=== PATIENT | female | born 1990 | race Caucasian/White ===

== ENCOUNTER 2021-05-04 14:46 | Emergency (ER) | payer OTHER, SELFPAY ==
--- NOTE | ~2021-05-04 | XR_ITS ---
EXAMINATION: RIGHT FOOT AND RIGHT ANKLE. CLINICAL INFORMATION: Pain and redness. COMPARISON: None TECHNIQUE: Right foot and right ankle. FINDINGS: Right ankle: There is mild lateral malleolar soft tissue swelling. The ankle mortise and subtalar joints are normal. There is moderate size calcaneal heel enthesophyte. No acute fracture or dislocation seen. Right foot: There is mild hallux valgus deformity first MTP joint. No visible acute fracture, dislocation seen. No subluxation or bony erosive changes. The soft tissues are normal. XR/XR ankle RT 2V IMPRESSION: Moderate size calcaneal heel enthesophyte. No visible acute fracture or dislocation seen. Hallux valgus deformity first MTP joint. No visible acute fracture or dislocation seen.
--- NOTE | ~2021-05-04 | XR_ITS ---
EXAMINATION: RIGHT FOOT AND RIGHT ANKLE. CLINICAL INFORMATION: Pain and redness. COMPARISON: None TECHNIQUE: Right foot and right ankle. FINDINGS: Right ankle: There is mild lateral malleolar soft tissue swelling. The ankle mortise and subtalar joints are normal. There is moderate size calcaneal heel enthesophyte. No acute fracture or dislocation seen. Right foot: There is mild hallux valgus deformity first MTP joint. No visible acute fracture, dislocation seen. No subluxation or bony erosive changes. The soft tissues are normal. XR/XR foot RT min 3V IMPRESSION: Moderate size calcaneal heel enthesophyte. No visible acute fracture or dislocation seen. Hallux valgus deformity first MTP joint. No visible acute fracture or dislocation seen.
[2021-05-04 14:58] VITALS: BP 136/90; PULSE 82; RESP 6; TEMP 36.6; O2SAT 98; BMI 33.3
--- NOTE | 2021-05-04 15:25 | ED_ITS ---
HPI - General Adult General Chief complaint: Extremity Injury, Lower Stated complaint: rt foot pain Time Seen by Provider: 05/04/21 15:20 Source: patient Mode of arrival: ambulatory Limitations: no limitations History of Present Illness HPI narrative: 30-year-old female here today for complaining of right ankle pain. Patient denies any injury. She reports that she woke up this morning and her foot was hurting. She reports swelling to right outer ankle. Patient reports that when she is walking she has pain that is radiating to her toes. Patient denies any insect bite. Onset (ago): hour(s) Location: right and lower extremity Radiation: distal Severity: mild Quality: burning and aching Related Data Previous Rx's Medication Instructions Recorded ibuprofen 600 mg tablet 600 mg PO Q8H PRN #20 tab 05/04/21 oxycodone 5 mg tablet 5 mg PO Q4-6H PRN #5 tab 05/04/21 Allergies Allergy/AdvReac Type Severity Reaction Status Date / Time No Known Allergies Allergy Verified 05/04/21 14:56 Review of Systems Constitutional: Constitutional: Denies weight gain and Denies weight loss Eyes: Eyes: Reports no additional eye complaints ENT: Reports system reviewed and no additional complaints, except as document ed Cardiovascular: Cardiovascular: Reports no additional cardiovascular complaints Respiratory: Respiratory: Reports no additional respiratory complaints Gastrointestinal: Gastrointestinal: Reports no additional gastrointestinal complaints, Reports belching and Reports melena Genitourinary: Genitourinary: Reports no additional female genitourinary complaints Musculoskeletal: Musculoskeletal: Reports no additional musculoskeletal complaints Neurologic: Reports system reviewed and no additional complaints, except as documented Psychiatric: Psychiatric: Reports no additional psychiatric complaints Endocrine: Endocrine: Reports no additional endocrine complaints [facility], [facility] Past Medical History Medical History (Updated 05/04/21 @ 16:44 by Reta Reyes [employer]OCUTION TEACHER-) Asthma Surgical History (Updated 05/04/21 @ 15:01 by Edna Schneider) S/P cholecystectomy Social History Social History Advance Directives: No Advance Directives Information Provided: No Patient : No Physical Exam Vital Signs: Vital Signs: Last Vital Signs Temp 97.8 F 05/04/21 14:58 Pulse 82 05/04/21 14:58 Resp 6 L 05/04/21 14:58 BP 136/90 H 05/04/21 14:58 Pulse Ox 98 05/04/21 14:58 Body Mass Index 33.3 Const: General: healthy appearing, no acute distress and well developed Nutritional Appearance: well nourished Orientation/consciousness: patient oriented x3 Neck: Neck: Yes normal visual inspection, Yes full ROM and Yes trachea midline Thyroid: Thyroid normal Resp: Auscultation: clear to auscultation bilaterally Cardio: Rate: regular rate Rhythm: regular rhythm GI: Inspection: Yes normal to inspection and No distended Palpation (GI): Soft to palpation and No hepatosplenomegaly present Auscultation: normal bowel sounds Skin: General skin exam: elasticity normal, turgor normal and dry skin Neuro: General: patient oriented x3 Extrem: General: Yes normal to inspection and Yes full ROM Right lower extremity: edema (Right outer ankle) Left lower extremity: normal to inspection Course Course Course Narrative: 30-year-old female complaining of right ankle pain. Patient denies any injury or any insect bite. Upon examination good range of motion, however she does have warm to touch swelling of her right outer ankle. No visible insect bite. However I suspect that most likely this is due to insect bite area red and inflamed. I will order x-ray and medicate her with ibuprofen. Reevaluation(s) Reevaluation #1: X-ray reviewed and no acute processes. Will send patient home with script for ibuprofen and oxycodone. She will follow-up with her PCP in 2-3 days. Patient was instructed to monitor the area and put warm compresses in order for that swelling to go down. Medical Decision Making Imaging Data Right ankle and foot x-ray: Radiologist's impression: FINDINGS: Right ankle: There is mild lateral malleolar soft tissue swelling. The ankle mortise and subtalar joints are normal. There is moderate size calcaneal heel enthesophyte. No acute fracture or dislocation seen. Right foot: There is mild hallux valgus deformity first MTP joint. No visible acute fracture, dislocation seen. No subluxation or bony erosive changes. The soft tissues are normal.? Discharge Plan Discharge Clinical Impression: Ankle pain Qualifiers: Chronicity: acute Laterality: right Qualified Code(s): M25.571 - Pain in right ankle and joints of right foot Patient Disposition: Home, Self-Care Instructions: Swollen Joint (ED) Additional Instructions: You were seen here today for swelling of your right ankle and pain. There x-ray was negative for any acute processes. Please follow-up with your primary care doctor in 2-3 days. Please apply heat to affected area. Keep your leg elevated when sitting. You may return to emergency department if you will experience any concerning symptoms or if you current symptoms will get worse. Prescriptions: New ibuprofen 600 mg tablet 600 mg PO Q8H PRN (Reason: pain) Qty: 20 RF: 0 oxycodone 5 mg tablet 5 mg PO Q4-6H PRN (Reason: pain) Qty: 5 RF: 0 Interventions: ED Discharge Assessment Last Done: 05/04/21 17:02 Discharge Date/Time: 05/04/21 17:02
[2021-05-04] MEDS: Ibuprofen 600 MG TABLET PO (15:30)
== END 2021-05-04 17:02 | disposition home or self-care (01) ==
PROVIDERS: Emergency Provider Internal Medicine
DX: M25.571 Pain in right ankle and joints of right foot (principal); Z79.899 Other long term (current) drug therapy
CPT/HCPCS: 73600; 73630; 99283; 99284

== ENCOUNTER 2022-05-26 15:08 | Emergency (ER) | payer OTHER, SELFPAY ==
[2022-05-26 15:21] VITALS: BP 140/70; BP 151/85; PULSE 120; PULSE 91; RESP 18; TEMP 37.1; O2SAT 80; O2SAT 99; BMI 92.4
--- NOTE | 2022-05-26 16:22 | ED.PSYCH ---
HPI - Psych General Chief Complaint: ETOH/Substance Use Stated Complaint: UNRESPONSIVE Time Seen by Provider: 05/26/22 15:15 Source: patient and EMS Mode of arrival: EMS Limitations: no limitations History of Present Illness HPI Narrative: Patient with no history of substance abuse use marijuana was walking on the sidewalk went to the Store had some marijuana and does not remember after that what happened patient was found on on the sidewalk cyanosed by bystanders [facility] had to give 8 mg of Narcan without much response EMS gave 2 mg IM and 2 mg intranasally and patient woke up patient required BVM for short time fever on arrival patient was saturating 99% on room air alert and awake Related Data Previous Rx's Medication Instructions Recorded ibuprofen 600 mg tablet 600 mg PO Q8H PRN pain #20 tabs 05/04/21 oxycodone 5 mg tablet 5 mg PO Q4-6H PRN pain #5 tabs 05/04/21 Allergies Allergy/AdvReac Type Severity Reaction Status Date / Time No Known Allergies Allergy Verified 05/04/21 14:56 Review of Systems Review of Systems: Yes all other systems are reviewed and are negative PMFSH Past Medical History Medical History Asthma Surgical History S/P cholecystectomy Social History Social History Advance Directives: No Advance Directives Information Provided: Yes Physical Exam Vital Signs: Vital Signs: Last Vital Signs Temp 98.7 F 05/26/22 15:21 Pulse 91 05/26/22 15:21 Resp 18 05/26/22 15:21 BP 151/85 H 05/26/22 15:21 Pulse Ox 99 05/26/22 15:21 O2 Del Method 05/26/22 15:21 BMI result Body Mass Index 92.4 Appearance: Alert. Oriented X3. No acute distress. Eyes: PERRLA, No Nystagmus ENT: Pharynx normal. Oral Mucosa moist Neck: Normal inspection. Neck supple. CVS: Normal heart rate and rhythm. Pulses normal. Respiratory: No respiratory distress. Equal air entry bilateral, no wheezing/rales/rhonchi Abdomen: Soft and nontender. Bowel sounds are present, no mass palpable, no CVA tenderness Skin: Skin warm and dry. Normal skin color. Normal skin turgor. Extremities: No lower extremity edema. No calf tenderness Neuro: Oriented X 3. No motor deficit. No sensory deficit.No cerebellar signs , cranial nerves II-XII intact MDM - Psych MDM Narrative Medical decision making narrative: Patient denies any need for detox states she does not use it and has not used any drugs in the past except marijuana very tearful on arrival will discharge patient home All the patient's urine positive for fentanyl and marijuana likely laced by fentanyl Lab Data Attestation: I reviewed the patient's lab results. Labs: Lab Results 05/26/22 Range/Units 16:19 Urine Opiates Screen Not Detected (Not Detect) Urine Fentanyl Screen POSITIVE H (Not Detect) Ur Barbiturates Screen Not Detected (Not Detect) Ur Phencyclidine Scrn Not Detected (Not Detect) Ur Amphetamines Screen Not Detected (Not Detect) U Benzodiazepines Scrn Not Detected (Not Detect) Urine Cocaine Screen Not Detected (Not Detect) U Marijuana (THC) Screen POSITIVE H (Not Detect) Discharge Plan Discharge Clinical Impression: Accidental opiate poisoning Patient Disposition: Home, Self-Care Instructions: Opioid Use Disorder (ED) Additional Instructions: About using opiate Follow-up with the detox Prescriptions: No Action ibuprofen 600 mg tablet 600 mg PO Q8H PRN (Reason: pain) Qty: 20 0RF oxycodone 5 mg tablet 5 mg PO Q4-6H PRN (Reason: pain) Qty: 5 0RF Rx Instructions: Patient may request fewer tablets than prescribed Interventions: ED Discharge Assessment Last Done: 05/26/22 17:19 Discharge Date/Time: 05/26/22 17:20
--- NOTE | 2022-05-26 16:27 | HO.SUDE ---
SUDE Patient is a 31 year old Italian speaking female who presented to [facility] ED after an accidental overdose. This tech writer met with patient to offer support and to conduct SUDE assessment. Patient reports that she does not use cocaine, heroin or any street pills. Patient reports she had a couple nips, a beer and smoked marijuana and that is the last thing she remembers. Patient reports she bought marijuana from someone she does not know and that she doesn't typically do this. Patient reports she smokes marijuana everyday to help with her appetite. Patient reports drinking one bottle of wine over the course of a week. Patient reports numerous life stressors including eviction, moving and family moving away and general feelings of isolation. Patient has two children who are in school at this time. Patient reports she likes to stay busy and was feeling isolated and anxious due to not working today. Patient continues to report no drug use aside form marijuana and alcohol. Patient states if I was an addict I would tell you. Patient reports she has never overdosed before. Patient reports she is currently awaiting counseling through [facility] and that she has found this helpful in the past. Discussed coping skills with patient. Patient reports she prays and reads when she is unable to get in touch with family for support. Encouraged patient to purchase cannabis through a dispensary if she is going to continue using. Patient acknowledged. Discussed utilizing healthy coping skills as opposed to alcohol when stressors occur. Discussed case with ED physician.
[2022-05-26 16:43] LABS: Amphetamine Screen Urine Not Detected (Not Detect); Barbiturates, Urine Not Detected (Not Detect); Benzodiazepines Screen Urine Not Detected (Not Detect); Cannabinoid Screen Urine POSITIVE (Not Detect); Cocaine Screen Urine Not Detected (Not Detect); Fentanyl, urine POSITIVE (Not Detect); Opiate Screen Urine Not Detected (Not Detect); Phencyclidine Screen Urine Not Detected (Not Detect)
--- NOTE | 2022-05-26 17:14 | MHC.RECOVSUP ---
? Reason for consult Recovery Support o Current location: ED05 o Identified substance use concern: Heroin - Overdose - Support ? Intervention: o Community resources provided o Harm reduction discussion ? Plan: o Patient awaiting crisis evaluation o Patient to follow up with [facility] after discharge ? Additional information: Met with Patient and we talked about Recovery and Harm reduction.. Patient stated that she has gone to [facility].. and that she is going to start going again
== END 2022-05-26 17:20 | disposition home or self-care (01) ==
PROVIDERS: Emergency Provider Internal Medicine
DX: T40.411A Poisoning by fentanyl or fentanyl analogs, accidental (unintentional), initial encounter (principal); T40.711A Poisoning by cannabis, accidental (unintentional), initial encounter; R40.4 Transient alteration of awareness; F19.10 Other psychoactive substance abuse, uncomplicated; Y92.410 Unspecified street and highway as the place of occurrence of the external cause; J45.909 Unspecified asthma, uncomplicated
CPT/HCPCS: 80307; 99282

== ENCOUNTER 2022-09-21 13:43 | Emergency (ER) | payer OTHER, SELFPAY ==
--- NOTE | ~2022-09-21 | CT_ITS ---
EXAMINATION: CT SOFT TISSUE NECK WITH CONTRAST CLINICAL INFORMATION: Dental abscess. COMPARISON: None TECHNIQUE: Following the intravenous administration of 60 mL of Omnipaque 350 intravenous contrast, helical imaging was performed in the axial plane with generation of coronal and sagittal reformatted images. This CT examination was performed using dose optimization techniques as appropriate, variously including the following: *Automated exposure control *Adjustment of mA and/or kV according to patient size (this includes techniques or standardized protocols for targeted exams where dose is matched to indication/reason for exam; i.e. extremities or head) *Use of iterative reconstruction technique DLP: 773 mGy-cm FINDINGS: There is soft tissue edema and small volume of fluid adjacent to the angle of the jaw at the left side of the face with mild edema extending into the left cheek subcutaneous tissue. There is no drainable abscess. No enhancing lesion. There is lucency around the apex of the posterior left mandible molar. There is dental caries of this molar as well with erosion of the dental crown. There is no periosteal abscess. Small retention cyst in the posterior left sphenoid sinus. No significant lymphadenopathy. There are a few small subcentimeter lymph nodes in the neck bilateral. Partially imaged intracranial structures are unremarkable. Orbits unremarkable. Lung apices normally aerated. CT/CT soft tissue neck w IV con IMPRESSION: 1. Soft tissue edema and small volume of fluid adjacent to the angle of the jaw at the left side of the face. There is no drainable abscess. 2. There is dental caries and lucency around the apex of the posterior left mandible molar. This is the etiology for the exam of the left side of the face. No periosteal abscess.
[2022-09-21 14:00] VITALS: BP 155/94; PULSE 92; RESP 18; TEMP 36.9; O2SAT 98; BMI 39.9
--- NOTE | 2022-09-21 14:00 | ED_ITS ---
HPI - Dental/Oral General Chief complaint: Dental/Oral <Carin Craig NP - Last Filed: 09/21/22 14:02> Stated complaint: dental pain facial swelling <Carin Craig NP - Last Filed: 09/21/22 14:02> Time Seen by Provider: 09/21/22 15:15 <Carin Craig NP - Last Filed: 09/21/22 14:02> Source: patient <Chantell Ahumada NP - Last Filed: 09/21/22 19:10> Mode of arrival: ambulatory <Chantell Ahumada NP - Last Filed: 09/21/22 19:10> Limitations: no limitations <Chantell Ahumada NP - Last Filed: 09/21/22 19:10> History of Present Illness HPI Narrative: 32-year-old female no significant past medical history presents to emergency department today with complaints of left-sided facial/jaw swelling present upon waking. She states she has several dental caries, specifically concerning is a left back molar that is cracked and broken. She states she begin amoxicillin antibiotic therapy yesterday, 7 day course, with anticipation for removal of the tooth in 1 week by her dentist. She reports associated discomfort, trismus and difficulty swallowing due to pain. She denies any difficulty managing her saliva, swallowing liquids, swallowing foods. She denies any fever, chest pain, shortness of breath, nausea, vomiting, headache, vision changes, ear pain. <Chantell Ahumada NP - Last Filed: 09/21/22 19:10> MD Complaint: tooth pain <Chantell Ahumada NP - Last Filed: 09/21/22 19:10> Location: Tooth # (Most likely 17) <Chantell Ahumada NP - Last Filed: 09/21/22 19:10> Onset (ago): hour(s) <Chantell Ahumada NP - Last Filed: 09/21/22 19:10> Duration: constant <Chantell Ahumada NP - Last Filed: 09/21/22 19:10> Severity: severe <Chantell Ahumada NP - Last Filed: 09/21/22 19:10> Severity scale (1-10): 8 <Chantell Ahumada NP - Last Filed: 09/21/22 19:10> Relieving factors: nothing <Chantell Ahumada NP - Last Filed: 09/21/22 19:10> Exacerbating factors: chewing, cold, swallowing and other (Opening around) <Chantell Ahumada NP - Last Filed: 09/21/22 19:10> Context: history of dental caries <Chantell Ahumada NP - Last Filed: 09/21/22 19:10> Associated symptoms: gum swelling <Chantell Ahumada NP - Last Filed: 09/21/22 19:10> Treatment prior to arrival: none <Chantell Ahumada NP - Last Filed: 09/21/22 19:10> Related Data Home medications: Previous Rx's Medication Instructions Recorded ibuprofen 600 mg tablet 600 mg PO Q8H PRN pain #20 tabs 05/04/21 oxycodone 5 mg tablet 5 mg PO Q4-6H PRN pain #5 tabs 05/04/21 oxycodone 5 mg capsule 5 mg PO Q6H PRN pain #8 caps 09/21/22 prednisone 20 mg tablet 60 mg PO DAILY #5 tabs 09/21/22 <Carin Craig NP - Last Filed: 09/21/22 14:02> Allergies/adverse reactions: Allergies Allergy/AdvReac Type Severity Reaction Status Date / Time latex Allergy Rash Verified 09/21/22 14:02 <Carin Craig NP - Last Filed: 09/21/22 14:02> Review of Systems Review of Systems: In addition to documented HPI above, the additional ROS was obtained: CONSTITUTIONAL: Denies fever, chills, weakness, fatigue, headache, night sweats, or weight loss EYES: Denies vision changes, eye pain, swelling, redness, foreign body, discharge ENT: Hearing normal. Denies sore throat, congestion, ear pain, no hoarseness CV: Denies chest pain or epigastric pain. No edema, palpitations, or dyspnea on exertion RESP: Denies shortness of breath. Denies cough, wheezing, dyspnea. Denies smoke exposure GI: Denies abdominal pain. Denies nausea, vomiting, constipation or diarrhea. No melena or hematochezia. : Denies irregular bleeding, and dysuria, urinary frequency, urinary incontinence/retention, urgency. Denies flank pain, hematuria MSK: Denies recent trauma, change in gait, myalgias, joint swelling or pain SKIN: Denies no lesions, rashes, or sores NEURO: Denies new numbness, tingling, dizziness, paresthesias or weakness. No loss of consciousness. Denies headache ENDOCRINE: Denies unexpected weight loss. Denies polyuria, polydipsia. No temperature intolerance HEME/ONC: Denies bleeding disorders, easy bruising, or lymphadenopathy PSYCH: Denies anxiety/panic, depression, SI/HI, or social issues. <Chantell Ahumada NP - Last Filed: 09/21/22 19:10> Yes all other systems are reviewed and are negative <Chantell Ahumada NP - Last Filed: 09/21/22 19:10> PMF Past Medical History Attestation statement: The following information was validated with the patient. <Chantell gonzalez NP - Last Filed: 09/21/22 19:10> Source: old records reviewed <Chantell Ahumada NP - Last Filed: 09/21/22 19:10> Medical History: Medical History Asthma <Carin Craig NP - Last Filed: 09/21/22 14:02> Surgical History: Surgical History S/P cholecystectomy <Carin Craig NP - Last Filed: 09/21/22 14:02> Social History Social History: Social History Advance Directives: No Advance Directives Information Provided: Yes <Carin Craig NP - Last Filed: 09/21/22 14:02> Physical Exam Vital Signs: Vital Signs: Last Vital Signs Temp 98.5 F 09/21/22 14:00 Pulse 92 09/21/22 14:00 Resp 18 09/21/22 14:00 BP 155/94 H 09/21/22 14:00 Pulse Ox 98 09/21/22 14:00 O2 Del Method 09/21/22 14:00 BMI result Body Mass Index 39.9 <Carin Craig NP - Last Filed: 09/21/22 14:02> Vital Signs: Last Vital Signs Temp 98.5 F 09/21/22 14:00 Pulse 92 09/21/22 14:00 Resp 18 09/21/22 14:00 BP 155/94 H 09/21/22 14:00 Pulse Ox 98 09/21/22 14:00 O2 Del Method 09/21/22 14:00 BMI result Body Mass Index 39.9 <Chantell Ahumada NP - Last Filed: 09/21/22 19:10> Nursing notes and vital signs reviewed. GENERAL APPEARANCE: A&0 x 4, generally well appearing, no acute distress HENMT: Normal to inspection, atraumatic, face symmetrical. Normal external ears, nose, and oropharynx clear. EYE: PERRLA, EOM intact, structures appear normal NECK: No stiffness or restricted ROM. Left-sided edema at parotid gland extending into neck CHEST: Normal to inspection HEART: Normal rate and regular rhythm, normal S1/S2, no M/R/G LUNGS: LS CTA, moving air well. Able to speak in complete sentences. No crackles, wheezes, or rhonchi auscultated ABDOMEN: Soft, nontender, nondistended. Normal bowel sounds noted BACK: No CVAT, no obvious deformity EXTREMITIES: Moving all extremities without difficulty. No cyanosis, clubbing, or edema. Normal capillary refill. NEUROLOGICAL: Alert and oriented, moving all 4 extremities with equal strength. CN not formally tested but appearing grossly intact. Observed to ambulate with normal gait. Cognition normal SKIN: Warm and dry without any lesions, rash, or visible sores PSYCH: Cooperative, normal affect, normal thought process <Chantell Ahumada NP - Last Filed: 09/21/22 19:10> Course Course Course Narrative: This is a rapid medical exam. Defer additional HPI, ROS and PE department provider. 32-year-old female with a history of asthma here with left sided lower dental pain and facial swelling. Patient was given antibiotic but did not start this till this morning. Patient with significant swelling to the left facial area. Likely will need ad vanced imaging. Will obtain labs, UA, ur preg. VSS <Carin Craig NP - Last Filed: 09/21/22 14:02> This is a rapid medical exam. Defer additional HPI, ROS and PE department provider. 32-year-old female with a history of asthma here with left sided lower dental pain and facial swelling. Patient was given antibiotic but did not start this till this morning. Patient with significant swelling to the left facial area. Likely will need advanced imaging. Will obtain labs, UA, ur preg. VSS 1550: Patient with significant swelling, pain, with fluctuance noticed at left cheek. CT soft tissue neck ordered. 1600: Topical lidocaine ointment and oxycodone provided to patient for comfort. 1620: Case discussed with Dr. Frausto. to bedside to assess possible dental abscess. Left posterior oropharynx anesthetized with 1% lidocaine for pain. Needle aspiration completed obtaining 1-2 mL purulent fluid. Lactic acid and blood cultures drawn. 1 L normal saline bolus given. Zosyn to be given MD recommendation for antibiotic coverage. Morphine given for c/o pain and zofran for c/o nausea with good effect his symptom reduction. 1700: lactate within normal limits, 0.6 1800: CT soft tissue neck showing soft tissue edema, small volume of fluid adjacent to the angle of the jaw on the left side of face, with no drainable abscess. Dental caries lucency noted at posterior mandible with no periosteal abscess. CT scan discussed with Dr. Frausto with plan to discharge home and continue a prescribed amoxicillin, [id number] Tylenol and/or Motrin, and oxycodone for pain control. Recommendation patient follow-up with her oral surgeon and primary care provider <Chantell Ahumada NP - Last Filed: 09/21/22 19:10> Medications Administered Discontinued Medications Generic Name Dose Route Start Last Admin Trade Name Freq PRN Reason Stop Dose Admin Piperacillin Sod/Tazobactam 50 mls @ 100 mls/hr 09/21/22 16:36 09/21/22 17:30 Sod 2.25 gm/ Sodium Chloride IV 09/21/22 17:05 Infused ONCE ONE Infusion Sodium Chloride 1,000 mls @ 999 mls/hr 09/21/22 16:45 09/21/22 18:39 Ns IVCONT 09/21/22 17:45 Infused .Q1H1M DEVON Infusion Iohexol 100 ml 09/21/22 17:46 09/21/22 17:46 Iohexol 350 Mg/Ml 100 Ml Infus..Btl IV 09/21/22 17:47 60 ml ONCE ONE Administration Morphine Sulfate 4 mg 09/21/22 16:37 09/21/22 16:52 Morphine Sulfate 4 Mg/Ml Cartridge IVPUSH 09/21/22 16:38 4 mg ONCE ONE Administration Protocol Ondansetron HCl 4 mg 09/21/22 16:37 09/21/22 16:52 Ondansetron Hcl 4 Mg/2 Ml Vial IVPUSH 09/21/22 16:38 4 mg ONCE ONE Administration Oxycodone HCl 5 mg 09/21/22 15:47 09/21/22 15:55 Oxycodone Hcl Immed Release 5 Mg Tablet PO 09/21/22 15:48 5 mg ONCE ONE Administration <Carin Craig NP - Last Filed: 09/21/22 14:02> Medications Administered Discontinued Medications Generic Name Dose Route Start Last Admin Trade Name Freq PRN Reason Stop Dose Admin Piperacillin Sod/Tazobactam 50 mls @ 100 mls/hr 09/21/22 16:36 09/21/22 17:30 Sod 2.25 gm/ Sodium Chloride IV 09/21/22 17:05 Infused ONCE ONE Infusion Sodium Chloride 1,000 mls @ 999 mls/hr 09/21/22 16:45 09/21/22 18:39 Ns IVCONT 09/21/22 17:45 Infused .Q1H1M DEVON Infusion Iohexol 100 ml 09/21/22 17:46 09/21/22 17:46 Iohexol 350 Mg/Ml 100 Ml Infus..Btl IV 09/21/22 17:47 60 ml ONCE ONE Administration Morphine Sulfate 4 mg 09/21/22 16:37 09/21/22 16:52 Morphine Sulfate 4 Mg/Ml Cartridge IVPUSH 09/21/22 16:38 4 mg ONCE ONE Administration Protocol Ondansetron HCl 4 mg 09/21/22 16:37 09/21/22 16:52 Ondansetron Hcl 4 Mg/2 Ml Vial IVPUSH 09/21/22 16:38 4 mg ONCE ONE Administration Oxycodone HCl 5 mg 09/21/22 15:47 09/21/22 15:55 Oxycodone Hcl Immed Release 5 Mg Tablet PO 09/21/22 15:48 5 mg ONCE ONE Administration <Chantell Auhmada NP - Last Filed: 09/21/22 19:10> Medical Decision Making Medical Decision Making MDM Narrative: 32-year-old female no significant past medical history presents to emergency department today with complaints of left-sided facial/jaw swelling present upon waking. She states she has several dental caries, specifically concerning is a left back molar that is cracked and broken. She states she begin amoxicillin antibiotic therapy yesterday, 7 day course, with anticipation for removal of the tooth in 1 week by her dentist. She reports associated discomfort, trismus and difficulty swallowing due to pain. Left oropharynx near tooth 17 anesthetized with 1-2 cc prior line drainage obtained. One does IV Zosyn given. Blood cultures drawn. Lactate level within normal limits. Blood work with elevated LFTs otherwise unremarkable. CT soft tissue neck showing soft tissue edema, small volume of fluid adjacent to the angle of the jaw on the left side of face, with no drainable abscess. Dental caries lucency noted at posterior mandible with no periosteal abscess. CT scan discussed with Dr. Frausto with plan to discharge home and continue a prescribed amoxicillin, [id number] Tylenol and/or Motrin, and oxycodone for pain control. Patient is safe for discharge at this time with plan to manage discomfort with [id number] Tylenol and/or Motrin, and prescribe narcotic. Prednisone prescribed for inflammation. Recommendation to continue her previously prescribed antibiotics as prescribed. HPI, PE, diagnostics, and plan discussed with patient and family with no unanswered questions at this time. Patient educated to return to the emergency department with difficulty swallowing, worsening pain, vision changes, ear pain, fever, or any other concerning emergent symptoms.Recommendation patient follow-up with her oral surgeon for further dental treatment management and her primary care provider regarding elevated liver enzymes *Refer to Course for additional information on consultations, diagnostic interpretation, consultations, emergency department stay, conversations with patient and family, shared decision making with patient, and more information on medical decision making* <Chantell Ahumada NP - Last Filed: 09/21/22 19:10> Lab Data [facility] Lab Attestation statement: I reviewed the patient's lab results. <Chantell Ahumada, SHED BOSS - Last Filed: 09/21/22 19:10> Result Diagrams: 09/21/22 15:14 09/21/22 15:14 <Carin Craig, SHED BOSS - Last Filed: 09/21/22 14:02> Labs: Lab Results 09/21/22 09/21/22 09/21/22 Range/Units 15:14 15:14 16:45 WBC 5.3 (4.8-10.8) X10*3/uL RBC 3.99 L (4.20-5.50) X10*6/uL Hgb 13.5 (12.0-16.0) g/dl Hct 38.8 (37.0-47.0) % MCV 97.2 (80.0-98.0) fL MCH 33.8 H (27.0-33.0) pg MCHC 34.8 (31.0-35.0) g/dl RDW 12.7 (11.0-16.0) % Plt Count 129 L (160-400) X10*3/uL MPV 11.5 (9.4-12.3) fL Immature Gran % (Auto) 0.4 (0.0-0.4) % Neut % (Auto) 64.0 (45-73) % Lymph % (Auto) 19.2 L (20-40) % [place] % (Auto) 15.6 H (2-11) % Eos % (Auto) 0.6 (0-4) % Baso % (Auto) 0.2 (0-2) % Lymph # (Auto) 1.0 L (1.2-4.9) X10*3/uL [place] # (Auto) 0.8 (0.1-1.2) X10*3/uL Eos # (Auto) 0.0 (0.0-0.4) X10*3/uL Baso # (Auto) 0.0 (0.0-0.2) X10*3/uL Abs Immat Gran (auto) 0.02 (0.00-0.03) X10*3/uL Absolute Neuts (auto) 3.4 (2.0-8.3) x10*3/uL Absolute Nucleated RBC 0.000 (0.0-0.012) X10*3/uL Nucleated RBC % (auto) 0.0 (0.0-0.2) /100WBC Sodium 136 (135-145) mmol/L Potassium 3.6 (3.3-5.1) mmol/L Chloride 101 (96-108) mmol/L Carbon Dioxide 28 (22-29) mmol/L Anion Gap 11 L (12-20) BUN 11 (9-16) mg/dL Creatinine 0.67 (0.5-1.4) mg/dL Estim Creat Clear Calc 146.5 Estimated GFR > 60 Random Glucose 93 (60-115) mg/dL Lactic Acid 0.6 (0.5-2.0) mmol/L Calcium 8.5 (8.4-10.2) mg/dL Total Bilirubin 1.1 H (0.0-1.0) mg/dL Direct Bilirubin 0.4 (0.0-0.5) mg/dL AST 63 H (5-31) U/L ALT 75 H (0-31) U/L Alkaline Phosphatase 125 H (39-117) U/L Total Protein 5.9 L (6.5-8.0) g/dL Albumin 3.7 (3.5-5.0) g/dL Beta HCG, Quant < 2 mIU/mL <Carin Craig, SHED BOSS - Last Filed: 09/21/22 14:02> Lab Results 09/21/22 09/21/22 09/21/22 Range/Units 15:14 15:14 16:45 WBC 5.3 (4.8-10.8) X10*3/uL RBC 3.99 L (4.20-5.50) X10*6/uL Hgb 13.5 (12.0-16.0) g/dl Hct 38.8 (37.0-47.0) % MCV 97.2 (80.0-98.0) fL MCH 33.8 H (27.0-33.0) pg MCHC 34.8 (31.0-35.0) g/dl RDW 12.7 (11.0-16.0) % Plt Count 129 L (160-400) X10*3/uL MPV 11.5 (9.4-12.3) fL Immature Gran % (Auto) 0.4 (0.0-0.4) % Neut % (Auto) 64.0 (45-73) % Lymph % (Auto) 19.2 L (20-40) % [place] % (Auto) 15.6 H (2-11) % Eos % (Auto) 0.6 (0-4) % Baso % (Auto) 0.2 (0-2) % Lymph # (Auto) 1.0 L (1.2-4.9) X10*3/uL [place] # (Auto) 0.8 (0.1-1.2) X10*3/uL Eos # (Auto) 0.0 (0.0-0.4) X10*3/uL Baso # (Auto) 0.0 (0.0-0.2) X10*3/uL Abs Immat Gran (auto) 0.02 (0.00-0.03) X10*3/uL Absolute Neuts (auto) 3.4 (2.0-8.3) x10*3/uL Absolute Nucleated RBC 0.000 (0.0-0.012) X10*3/uL Nucleated RBC % (auto) 0.0 (0.0-0.2) /100WBC Sodium 136 (135-145) mmol/L Potassium 3.6 (3.3-5.1) mmol/L Chloride 101 (96-108) mmol/L Carbon Dioxide 28 (22-29) mmol/L Anion Gap 11 L (12-20) BUN 11 (9-16) mg/dL Creatinine 0.67 (0.5-1.4) mg/dL Estim Creat Clear Calc 146.5 Estimated GFR > 60 Random Glucose 93 (60-115) mg/dL Lactic Acid 0.6 (0.5-2.0) mmol/L Calcium 8.5 (8.4-10.2) mg/dL Total Bilirubin 1.1 H (0.0-1.0) mg/dL Direct Bilirubin 0.4 (0.0-0.5) mg/dL AST 63 H (5-31) U/L ALT 75 H (0-31) U/L Alkaline Phosphatase 125 H (39-117) U/L Total Protein 5.9 L (6.5-8.0) g/dL Albumin 3.7 (3.5-5.0) g/dL Beta HCG, Quant < 2 mIU/mL <Chantell Ahumada NP - Last Filed: 09/21/22 19:10> Radiology Impression Discussion of test interpretation with radiology: I have reviewed the radiologist's reading. <Chantell Ahumada NP - Last Filed: 09/21/22 19:10> Radiologist Impression: I have independently reviewed the CT scan of soft tissue neck showing soft tissue edema and small fluid volume adjacent to the jaw on the left side of face with no drainable abscess, dental caries, no periosteal abscess EXAMINATION: CT SOFT TISSUE NECK WITH CONTRAST CLINICAL INFORMATION: Dental abscess.? COMPARISON: None? TECHNIQUE: Following the intravenous administration of 60 mL of Omnipaque 350 intravenous contrast, helical imaging was performed in the axial plane with generation of coronal and sagittal reformatted images. This CT examination was performed using dose optimization techniques as appropriate, variously including the following: *Automated exposure control *Adjustment of mA and/or kV according to patient size (this includes techniques or standardized protocols for targeted exams where dose is matched to indication/reason for exam; i.e. extremities or head) *Use of iterative reconstruction technique DLP: 773 mGy-cm FINDINGS: There is soft tissue edema and small volume of fluid adjacent to the angle of the jaw at the left side of the face with mild edema extending into the left cheek subcutaneous tissue. There is no drainable abscess. No enhancing lesion. There is lucency around the apex of the posterior left mandible molar. There is dental caries of this molar as well with erosion of the dental crown. There is no periosteal abscess. Small retention cyst in the posterior left sphenoid sinus. No significant lymphadenopathy. There are a few small subcentimeter lymph nodes in the neck bilateral. Partially imaged intracranial structures are unremarkable. Orbits unremarkable. Lung apices normally aerated. CT/CT soft tissue neck w IV con IMPRESSION: 1.? Soft tissue edema and small volume of fluid adjacent to the angle of the jaw at the left side of the face. There is no drainable abscess. 2.? There is dental caries and lucency around the apex of the posterior left mandible molar. This is the etiology for the exam of the left side of the face. No periosteal abscess. ? Dictated By: Ted Macedo MD Signed By: <Electronically signed by Ted Macedo MD in [place]> 09/21/221807 DD/ 51 TD/TT:? Physical Therapist Center Manager: HAMZAH <Chantell Ahumada NP - Last Filed: 09/21/22 19:10> Discharge Plan Discharge Clinical Impression: Dental abscess <Carin Craig NP - Last Filed: 09/21/22 14:02> Patient Disposition: Home, Self-Care <Carin Craig NP - Last Filed: 09/21/22 14:02> Instructions: Dental Abscess (ED) <Carin Craig NP - Last Filed: 09/21/22 14:02> Additional Instructions: Your CT scan shows soft tissue swelling with a small volume of fluid at the jaw on the left side of your face with no drainable abscess. There are dental caries at the back of the left molars with no abscesses noted in the bone. Your blood work is unremarkable with the exception your liver enzymes were mildly elevated. Please follow-up the primary care provider regarding this. Please continue amoxicillin antibiotic prescription. Prednisone has been prescribed you as an anti-inflammatory to help with swelling. Oxycodone has been provided to you for pain management. Please take as prescribed. Do not take oxycodone with other sedating medications, do not drive while taking narcotics. Please return to the emergency department with difficulty swallowing, increased pain, changes in vision, ear pain, fever, or any other concerning emergent symptoms. Please follow-up with your dentist regarding your dental abscess. <Carin Craig NP - Last Filed: 09/21/22 14:02> Prescriptions: New prednisone 20 mg tablet 60 mg PO DAILY Qty: 5 0RF oxycodone 5 mg capsule 5 mg PO Q6H PRN (Reason: pain) Qty: 8 0RF Rx Instructions: Partial Fill upon patient request. No Action ibuprofen 600 mg tablet 600 mg PO Q8H PRN (Reason: pain) Qty: 20 0RF oxycodone 5 mg tablet 5 mg PO Q4-6H PRN (Reason: pain) Qty: 5 0RF Rx Instructions: Patient may request fewer tablets than prescribed <Carin Craig NP - Last Filed: 09/21/22 14:02> Referrals: [facility] [place] [facility]] [facility]] <Carin Craig NP - Last Filed: 09/21/22 14:02> Print Language: Mohawk <Carin Craig NP - Last Filed: 09/21/22 14:02>
[2022-09-21 15:20] LABS: MANUAL DIFF FLAG NO
[2022-09-21 15:34] LABS: Basophils Percent Auto 0.2 % (0-2); Eosinophils Percent Auto 0.6 % (0-4); Hematocrit 38.8 % (37.0-47.0); Hemoglobin 13.5 g/dl (12.0-16.0); Imm Gran Abs Auto 0.02 X10*3/uL (0.00-0.03); Imm Gran Pct Auto 0.4 % (0.0-0.4); Lymphocytes Percent Auto 19.2 % (20-40); Mean Corpuscular HGB Conc 34.8 g/dl (31.0-35.0); Mean Corpuscular Hemoglobin 33.8 pg (27.0-33.0); Mean Corpuscular Volume 97.2 fL (80.0-98.0); Mean Platelet Volume 11.5 fL (9.4-12.3); Monocytes Absolute Auto 0.8 X10*3/uL (0.1-1.2); Monocytes Percent Auto 15.6 % (2-11); Neutrophils Absolute Auto 3.4 x10*3/uL (2.0-8.3); Platelet Count 129 X10*3/uL (160-400); Red Blood Count 3.99 X10*6/uL (4.20-5.50); Red Cell Distribution Width 12.7 % (11.0-16.0); White Blood Count 5.3 X10*3/uL (4.8-10.8)
[2022-09-21 15:40] LABS: Anion Gap 11 (12-20); Blood Urea Nitrogen 11 mg/dL (9-16); Calcium 8.5 mg/dL (8.4-10.2); Carbon Dioxide 28 mmol/L (22-29); Chloride 101 mmol/L (96-108); Creatinine Clr Calc Pharmacy 146.5; Estimated Glomerular Filt Rate > 60; Glucose Random 93 mg/dL (60-115); Potassium 3.6 mmol/L (3.3-5.1); Sodium 136 mmol/L (135-145)
[2022-09-21] MEDS: oxyCODONE HCl Immed Release 5 MG TABLET PO (15:55)
[2022-09-21 16:38] LABS: Alanine Aminotransferase 75 U/L (0-31); Albumin Level 3.7 g/dL (3.5-5.0); Alkaline Phosphatase 125 U/L (39-117); Aspartate Amino Transferase 63 U/L (5-31); Bilirubin Direct 0.4 mg/dL (0.0-0.5); Bilirubin Total 1.1 mg/dL (0.0-1.0); Total Protein 5.9 g/dL (6.5-8.0)
[2022-09-21] MEDS: Piperacillin Sodium/Tazobactam 2.25 GM in 0.9 % Sodium Chloride 50 ML IV (16:52)
[2022-09-21] MEDS: ondansetron HCL 4 MG/2 ML VIAL IVPUSH (16:52)
[2022-09-21] MEDS: 0.9 % Sodium Chloride 1,000 ML 999 ML IVCONT (16:52)
[2022-09-21] MEDS: Morphine Sulfate 4 MG/ML CARTRIDGE IVPUSH (16:52)
[2022-09-21 17:24] LABS: Lactic Acid 0.6 mmol/L (0.5-2.0)
[2022-09-21] MEDS: iohexoL 350 MG/ML 100 ML INFUS..BTL IV (17:46)
[2022-09-21 18:15] LABS: HCG Quantitative < 2 mIU/mL
== END 2022-09-21 19:18 | disposition home or self-care (01) ==
PROVIDERS: Nurse Practitioner Family; Physician Assistant Medical; Emergency Provider Student in an Organized Health Care Education/Training Program
DX: K04.7 Periapical abscess without sinus (principal); R60.9 Edema, unspecified; R68.84 Jaw pain; K02.9 Dental caries, unspecified; K03.81 Cracked tooth
CPT/HCPCS: 36415; 41800; 70491; 80048; 80076; 83605; 84702; 85025; 87040; 96361; 96365; 96375; 99283; 99284; J2270; J2405; J2543; Q9967

== ENCOUNTER 2023-03-06 17:54 | Emergency (ER) | payer OTHER, SELFPAY ==
--- NOTE | ~2023-03-06 | XR_ITS ---
EXAMINATION: XR TIBIA AND FIBULA, LEFT CLINICAL INFORMATION: Wound distal mackenzie COMPARISON: None available. TECHNIQUE: AP and lateral views of the left tibia and fibula were obtained. FINDINGS: There is a subtle soft tissue defect along the anterior aspect of the distal mackenzie. There is diffuse soft tissue edema seen elsewhere. I do not appreciate any radiopaque foreign body or obvious soft tissue gas. Underlying bony structures are unremarkable with no acute fracture or dislocation noted. XR/XR tibia fibula LT 2V IMPRESSION: Soft tissue defect along the anterior aspect of the distal mackenzie with diffuse soft tissue edema elsewhere. No radiopaque foreign body or acute bony abnormality.
[2023-03-06 18:11] VITALS: BP 114/82; PULSE 90; RESP 18; TEMP 36; O2SAT 97; BMI 37.4
--- NOTE | 2023-03-06 18:11 | ED.GENADULT ---
HPI - General Adult General Chief complaint: Wound/Laceration Stated complaint: L leg inj Time Seen by Provider: 03/06/23 19:46 Source: patient Mode of arrival: ambulatory Limitations: no limitations History of Present Illness HPI narrative: 32 yo female presents to the ER for evaluation of left lower leg wound sustained 1 month ago when she was climbing on rocks. She states she has been changing the dressings once per day and it has been very slowly healing. The last 3-4 days she noticed more redness, swelling and discomfort around the open portion of the wound proximally. She denies any drainage from the wound. No fever or chills. She is not diabetic. She is an active smoker. She has not seen a medical provider for this wound before. MD complaint: left lower leg wound Onset (ago): week(s) Location: left and lower extremity Radiation: non-radiation Severity: moderate Quality: aching Pain Consistency: intermittent Relieving factors: none Exacerbating factors: none Associated symptoms: denies other symptoms Treatments prior to arrival: none Related Data Previous Rx's Medication Instructions Recorded ibuprofen 600 mg tablet 600 mg PO Q8H PRN pain #20 tabs 05/04/21 oxycodone 5 mg tablet 5 mg PO Q4-6H PRN pain #5 tabs 05/04/21 oxycodone 5 mg capsule 5 mg PO Q6H PRN pain #8 caps 09/21/22 prednisone 20 mg tablet 60 mg PO DAILY #5 tabs 09/21/22 amoxicillin 875 mg-potassium 1 tab PO BID #14 tabs 03/06/23 clavulanate 125 mg tablet Allergies Allergy/AdvReac Type Severity Reaction Status Date / Time latex Allergy Rash Verified 03/06/23 18:11 Review of Systems Review of Systems: Yes all other systems are reviewed and are negative [facility] Past Medical History Medical History Asthma Surgical History S/P cholecystectomy Social History Social History Advance Directives: No Advance Directives Information Provided: No Physical Exam ED Vital Signs: Vital Signs - 24 hr 03/06/23 18:11 Temperature 96.8 F Pulse Rate 90 Respiratory Rate 18 Blood Pressure 114/82 Pulse Oximetry 97 Oxygen Delivery Method Room Air BMI result Body Mass Index 37.4 Appearance: Alert. Oriented X3. No acute distress. HEENT: normal inspection CVS: Normal heart rate and rhythm. Pulses normal. Respiratory: No respiratory distress. Skin: Skin warm and dry. Normal skin color. Normal skin turgor. No rashes. Extremities: left lower anterior leg with a 7 inch wound, fully healed distal 4 inches with 3 inches of open wound approximately 0.25cm deep with scabbing. mild surrounding erythema, tenderness. no fluctuance. no calf tenderness Neuro: Oriented X 3. No motor deficit. No sensory deficit. Course Course Course Narrative: This is an RME: Additional HPI, ROS, PE not included below will be deferred to primary provider. Patient is a 32-year-old female with wound to left lower leg. States was climbing rocks 4 weeks ago and slipped. Had been doing dressing changes but feels has been developing new erythema over the past few days. Denies fevers. Can go to [facility]. Plan: X-ray Medications Administered Discontinued Medications Generic Name Dose Route Start Last Admin Trade Name Freq PRN Reason Stop Dose Admin Amoxicillin/Clavulanate Potassium 875 mg 03/06/23 19:59 03/06/23 20:08 Amoxicillin/Potassium Clav 875 Mg Tablet PO 03/06/23 20:00 875 mg ONCE ONE Administration Medical Decision Making Medical Decision Making [facility] Narrative: 32 yo female, active smoker presenting with chronic left lower leg wound from slipping on a rock a month ago. On exam there is healing by secondary intention proximally with mild surrounding cellulitic changes. no evidence of abscess. XR done and did not show any bony changes. no fever or tachycardia, unlikely sepsis. she has delayed wound healing with smoking likely contributing. she would have benefited from wound closure at the time of injury. will start on po abx and have her follow up with the wound clinic for further management and montioring. Differential Diagnosis Differential Diagnoses: The differential diagnosis associated with the presentation includes delayed wound healing, cellulitis, abscess, less likely osteomyelitis Independent Interpretation I performed an independent interpretation of an: Plain X-Ray Interpretation: no bony erosions, agree w/ radiology read Radiology Impression Discussion of test interpretation with radiology: I have reviewed the radiologist's reading. Radiologist Impression: ?XR/XR tibia fibula LT 2V IMPRESSION: Soft tissue defect along the anterior aspect of the distal mackenzie with diffuse soft tissue edema elsewhere. No radiopaque foreign body or acute bony abnormality. External Record Review External record reviewed: Outpatient record and Prior outpatient labs Tests considered The following testing was considered but not selected: considered basic labs but exam w/ mild cellulitis on exam Prescription Management I considered prescription management with: Pain Medication and Antibiotic Chronic Conditions Patient?s care impacted by: Other (active smoker) Critical Care Time Critical Care Time Critical Care Time: No Discharge Plan Discharge Clinical Impression: Open wound, lower leg Patient Disposition: Home, Self-Care Instructions: Acute Wounds (DC) Additional Instructions: Take the prescribed antibiotics as directed, complete the entire course and do not miss any doses Follow up with the wound clinic - call for an appointment Do your best to quit or cut back on smoking, this will help with would healing If you develop new or worsening symptoms call 911 or come back to the ER for further evaluation. Prescriptions: New amoxicillin-pot clavulanate 875-125 mg tablet 1 tab PO BID Qty: 14 0RF No Action ibuprofen 600 mg tablet 600 mg PO Q8H PRN (Reason: pain) Qty: 20 0RF oxycodone 5 mg tablet 5 mg PO Q4-6H PRN (Reason: pain) Qty: 5 0RF Rx Instructions: Patient may request fewer tablets than prescribed prednisone 20 mg tablet 60 mg PO DAILY Qty: 5 0RF oxycodone 5 mg capsule 5 mg PO Q6H PRN (Reason: pain) Qty: 8 0RF Rx Instructions: Partial Fill upon patient request. Referrals: [facility] W[facility] [Provider Group] (left lower leg wound x4 weeks, delayed healing) Interventions: ED Discharge Assessment Last Done: 03/06/23 20:14
[2023-03-06] MEDS: Amoxicillin/Potassium Clav 875 MG TABLET PO (20:08)
== END 2023-03-06 20:14 | disposition home or self-care (01) ==
PROVIDERS: Emergency Provider Emergency Medicine
DX: S81.802A Unspecified open wound, left lower leg, initial encounter (principal); X58.XXXA Exposure to other specified factors, initial encounter; Y93.9 Activity, unspecified; Y92.9 Unspecified place or not applicable; Y99.9 Unspecified external cause status; Z79.899 Other long term (current) drug therapy; F17.200 Nicotine dependence, unspecified, uncomplicated; Z71.6 Tobacco abuse counseling
CPT/HCPCS: 73590; 99282; 99283

== ENCOUNTER 2023-08-24 14:37 | Inpatient (IN) | payer OTHER, SELFPAY ==
[2023-08-24 14:48] VITALS: BP 121/68; BP 146/86; PULSE 71; PULSE 84; RESP 16; TEMP 36.8; O2SAT 100; BMI 38.5
--- NOTE | 2023-08-24 14:50 | PC.NURSE ---
security called/bedside to change pt over. pt calm/cooperative. changed into ligature free hospital attire. belongings placed in locker 11 in the pod - belongings list completed. urine obtained/sent to lab. pt verbalizing SI w/ a plan to overdose. denies HI. 1:1 sitter now present.
--- NOTE | 2023-08-24 15:13 | PC.NURSE ---
ED provider bedside speaking w/ pt. pt c/o abd pain where scar presents with n/v/d. sx started this morning. nontender upon palpation. pt also c/o sob that worsens upon exertion. no wob noted. respirations even/unlabored. 20gIV placed in the left AC w/o difficulty - labs drawn and sent to lab. medications administered per provider order. pt remaining calm/cooperative. 1:1 sitter present.
[2023-08-24] MEDS: 0.9 % Sodium Chloride 1,000 ML 999 ML IV (15:15)
[2023-08-24] MEDS: ondansetron HCL 4 MG/2 ML VIAL IVPUSH (15:20)
[2023-08-24] MEDS: LORazepam 2 MG/ML VIAL 1 MG IVPUSH (15:20)
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
[2023-08-24 15:21] VITALS: BP 121/79; PULSE 79; RESP 16; TEMP 37.1; O2SAT 96
[2023-08-24 15:23] LABS: MANUAL DIFF FLAG NO
[2023-08-24 15:25] LABS: Basophils Percent Auto 0.3 % (0-2); Eosinophils Percent Auto 0.2 % (0-4); Hematocrit 41.6 % (37.0-47.0); Hemoglobin 14.3 g/dl (12.0-16.0); Imm Gran Abs Auto 0.01 X10*3/uL (0.00-0.03); Imm Gran Pct Auto 0.1 % (0.0-0.4); Lymphocytes Absolute Auto 2.1 X10*3/uL (1.2-4.9); Lymphocytes Percent Auto 23.6 % (20-40); Mean Corpuscular HGB Conc 34.4 g/dl (31.0-35.0); Mean Corpuscular Hemoglobin 34.5 pg (27.0-33.0); Mean Corpuscular Volume 100.2 fL (80.0-98.0); Mean Platelet Volume 11.7 fL (9.4-12.3); Neutrophils Absolute Auto 5.6 x10*3/uL (2.0-8.3); Neutrophils Percent Auto 64.8 % (45-73); Platelet Count 158 X10*3/uL (160-400); Red Blood Count 4.15 X10*6/uL (4.20-5.50); Red Cell Distribution Width 12.1 % (11.0-16.0); White Blood Count 8.7 X10*3/uL (4.8-10.8)
[2023-08-24 15:27] LABS: Appearance Urine Clear; Color Urine Dark Yellow; Glucose Urine UA Negative (Negative); Leukocyte Esterase Urine Negative (Negative); Nitrite Urine Negative (Negative); PH 5.5 (5.0-9.0); Specific Gravity - Urine >= 1.030 (1.005-1.025); Urine Blood Negative (Negative); Urine Ketones 80 mg/dL (Negative); Urine Protein Negative (Neg-Trace)
[2023-08-24 15:32] LABS: Amphetamine Screen Urine Not Detected (Not Detect); Barbiturates, Urine Not Detected (Not Detect); Benzodiazepines Screen Urine Not Detected (Not Detect); Cannabinoid Screen Urine POSITIVE (Not Detect); Cocaine Screen Urine Not Detected (Not Detect); Fentanyl, urine Not Detected (Not Detect); Opiate Screen Urine Not Detected (Not Detect); Phencyclidine Screen Urine POSITIVE (Not Detect)
--- NOTE | 2023-08-24 15:45 | PC.NURSE ---
tech bedside obtaining swab/sending to lab.
[2023-08-24 15:46] LABS: Alanine Aminotransferase 15 U/L (0-31); Albumin Level 4.2 g/dL (3.5-5.0); Alkaline Phosphatase 91 U/L (39-117); Anion Gap 10 (12-20); Aspartate Amino Transferase 19 U/L (5-31); Bilirubin Total 1.5 mg/dL (0.0-1.0); Blood Urea Nitrogen 11 mg/dL (9-16); Calcium 9.1 mg/dL (8.4-10.2); Carbon Dioxide 27 mmol/L (22-29); Chloride 107 mmol/L (96-108); Estimated Glomerular Filt Rate > 60; Ethanol < 10 mg/dL; Glucose Random 90 mg/dL (60-115); HCG Quantitative < 2 mIU/mL; Lipase 12 U/L (8-78); Potassium 3.3 mmol/L (3.3-5.1); Sodium 141 mmol/L (135-145); Total Protein 6.8 g/dL (6.5-8.0)
[2023-08-24] MEDS: Thiamine HCL 100 MG TABLET PO (16:19)
[2023-08-24] MEDS: Multivitamin TABLET 1 TAB PO (16:19)
[2023-08-24] MEDS: Folic Acid 1 MG TABLET PO (16:19)
--- NOTE | 2023-08-24 16:20 | PC.NURSE ---
medication administered per provider order.
[2023-08-24 17:15] LABS: Influenza A PCR NEGATIVE (Negative); Influenza B PCR NEGATIVE (Negative); Resp Syncy Virus RNA Qual PCR NEGATIVE (Negative); SARS COV2 PCR INHOUSE NEGATIVE (Negative)
[2023-08-24 18:39] VITALS: BP 128/84; PULSE 87; RESP 16; O2SAT 97
--- NOTE | 2023-08-24 18:40 | PC.NURSE ---
vss and up to date. pt verbalizing abdominal pain subsided at this time. updated CIWA = 0. pt waiting to see CARE team at this time. respirations remain even/unlabored. pt denies SI/HI at this time. 1:1 sitter present. call ramirez placed within reach.
--- NOTE | 2023-08-24 20:05 | PC.NURSE ---
This RN called to nurses station. Once there greeted by two DCF workers reporting they have an open case for this patient and are planning for safety. DCF workers questioning plan. This RN informed them that she had received medication and was resting and she was awaiting to be seen by care team. DCF workers asked what she was intoxicated with and this RN informed them that she would have to check and unsure if this information could be given. This RN verified with charge account authorizer that this information should not be given unless there was a warrant indicating to do so. [facility] sent email to this RN as follows: As you know, [place] [employer] Laws, Chapter 119, Section 21 defines you as a mandated personnel clerks supervisor. As such, pursuant to [place] [employer] Laws, Chapter 119, Section 51A, you are required to file a report with the [place] Department of Children and Families (Department) if you have reasonable cause to believe that a child is currently or has been abused or neglected. Such filing is to be initiated first by a telephone call to the Department followed by the submission of the mandated personnel clerks supervisor report. In addition, if requested by the Department, [place] [employer] Laws, Chapter 119, Section 51B obligates you to provide the Department information during any investigation of child abuse or neglect, regardless of whether you filed a report with the Department. When the Department is making a determination to investigate, it may contact you and request such information. This is carried out under the authority granted in [place] [employer] Laws, Chapter 119, Section 51B. The [place] Insurance and Portability and Accountability Act (HIPAA) does not alter these mandates or state law. HIPAA specifically provides that nothing in the privacy requirements of HIPAA ?shall be construed to invalidate or limit the authority, power, or procedures established under any law providing for the report of ?child abuse?? (42 U.S.C. ?1178(c)). HIPAA further allows parents, or those acting in loco parentis (such as an agency with custody or foster parents) to obtain their child?s medical information. For the Department, HIPAA does not change the authority of the Department to obtain medical information or to make medical decisions for children in the Department?s custody. Departmental foster parents are authorized by the Department to obtain medical information for children in the Department?s custody and to consent to routine medical and dental services for the children they care for. The Department appreciates your cooperation, as well as all of your work to ensure the safety and health of children while simultaneously respecting the privacy protections that the HIPAA is intended to provide. If you have any questions, please call the Travel Pt of the local Department?s Area Office. A listing of offices and telephone numbers can be found on our website at [email or web address]. This RN informed them that she would talk to the covering provider and have him discuss case with them. made aware, DCF workers in patient room at this time.
[2023-08-24 20:15] VITALS: BP 127/79; PULSE 81; RESP 18; TEMP 37.5; O2SAT 98
--- NOTE | 2023-08-24 20:38 | PC.NURSE ---
DCF workers Kathleen and Rosalie came out of patient room waiting to speak with care team and provider. This RN brought them to family waiting room and Donor Recruiter called to let them know they are waiting. MD also aware.
--- NOTE | 2023-08-24 20:54 | MHC.EDTECH ---
This tech took over care at this time, hourly rounds and vitals completed, patient is watching TV at this time,1-1 sitter at bedside for safety
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
[2023-08-24 22:34] VITALS: BP 126/75; PULSE 98; RESP 18; TEMP 37.3; O2SAT 99
--- NOTE | 2023-08-24 22:37 | MHC.EDTECH ---
Hourly rounds and vitals completed,1-1 sitter at bedside for safety
[2023-08-24 23:56] VITALS: BP 133/94; PULSE 88; RESP 18; TEMP 37.2; O2SAT 98
--- NOTE | 2023-08-24 23:57 | MHC.EDTECH ---
Hourly rounds and vitals completed, patient was getting anxious,she has been in bed all day, sitter walking patient around the ED at this time.
--- NOTE | 2023-08-25 00:04 | PC.NURSE ---
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 PHONE NUMBER [phone].
--- NOTE | 2023-08-25 00:07 | PC.NURSE ---
2200: PT ALERT AND ORIENTED X4, THROUGHOUT SHIFT PATIENT HAS HAD RANDOM CRYING REPORTED FEELING FRUSTRATED THAT CHILDREN AND BOYFRIEND HAD NOT CALLED. PATIENT ALSO CRYING AFTER DCF CASE WORKERS LEFT. PATIENT DENIES SI/HI AT THIS TIME STATING SHE DOESN'T WANT TO HURT HERSELF BUT HAS A LOT GOING ON THAT IS STRESSING HER OUT. PATIENT HAS 1:1 SITTER DOING ACTIVITIES AT BEDSIDE. PATIENT CALM/COOPERATIVE AT THIS TIME
--- NOTE | 2023-08-25 00:10 | PC.NURSE ---
PT CURRENTLY REPORTING THAT SHE IS FEEKING ANXIOUS AND ANTSY FROM BEING IN ROOM ALL DAY, PT REQUEST SOMETHING TO HELP HER SLEEP PATIENT ALLOWED TO WALK AROUND THE ED WITH SITTER NOTIFIED AND MEDICATION PRESCRIBED AND ADMINISTERED PER ORDERS.
[2023-08-25 01:58] VITALS: RESP 18
[2023-08-25 04:17] VITALS: RESP 16
--- NOTE | 2023-08-25 04:39 | MHC.EDTECH ---
Hourly rounds completed,patient is sleeping 1-1 sitter at bedside
[2023-08-25 04:59] VITALS: BP 135/84; PULSE 90; RESP 22; TEMP 36.6; O2SAT 97
--- NOTE | 2023-08-25 05:03 | MHC.EDTECH ---
Patient rang the ramirez,this tech entered room,patient coughing and stated her asthma is acting up,vitals were taken and Ann JARA was made aware
--- NOTE | 2023-08-25 05:10 | MHC.EDTECH ---
Patient ambulated to bathroom with a steady gait, sitter at side for safety
[2023-08-25] MEDS: Albuterol Sulfate (0.083%) 2.5 MG/3 ML VIAL.NEB INHALE (05:12)
--- NOTE | 2023-08-25 05:12 | PC.NURSE ---
PT c/o sob/cough. RR:20's o2 sta92%. Pt has wheezes throughout, reports she has asthma and uses symbicort at home. notified and ordered albuterol. Respiratory called to administer.
[2023-08-25 05:13] VITALS: PULSE 90; RESP 16; O2SAT 97
[2023-08-25] MEDS: Nicotine 21 MG PATCH.TD24 TRANSDERMA (06:06)
[2023-08-25 06:32] VITALS: BP 126/96; PULSE 97; RESP 20; TEMP 36.6; O2SAT 98
--- NOTE | 2023-08-25 06:35 | MHC.EDTECH ---
Hourly rounds and vitals completed,patient is very tearful and agitated,she is trying to call her kids and there is no answer,patient is requesting something to help calm her down,Ann JARA was made aware. 1-1 sitter at bedside for safety
[2023-08-25] MEDS: LORazepam 1 MG TABLET 2 MG PO ×3 (07:22→21:18)
--- NOTE | 2023-08-25 08:31 | PC.NURSE ---
checked in with pt. denies SI/HI but sts she is feeling irritated. pt is stationed by the phone and sts her boyfriend was supposed to call out of work and her daughters are giving her a hard time. 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 pt told team here will look into it.
--- NOTE | 2023-08-25 09:31 | PC.NURSE ---
pt on phone with boyfriend. conversation getting heated and pt becoming upset. pt finally ended conversation and is resting quietly. requesting toast with jesayy.
--- NOTE | 2023-08-25 10:23 | PC.NURSE ---
DCF called and spoke with t/w for update on pt since being evaluated by care team. DCF provided with update and will call back if needing further information.
[2023-08-25] MEDS: LORazepam 1 MG TABLET PO (12:26)
--- NOTE | 2023-08-25 12:28 | PC.NURSE ---
Pt reports she is feeling increasingly agitated, requesting something to help me calm down . This RN called MD Tay who ordered 1mg Ativan PO. Pt took medication willingly with no issue. Pt is tearful when speaking with this RN stating I don't need to be here, I am worried about my dad .
--- NOTE | 2023-08-25 13:38 | PC.NURSE ---
pt's boyfriend is visiting with pt.
[2023-08-25 15:44] VITALS: BP 143/95; PULSE 96; RESP 18; TEMP 37.7; O2SAT 99
--- NOTE | 2023-08-25 15:59 | PC.NURSE ---
pt asks t/w for a second time if she can be discharged and go home with her boyfriend who is here visiting. pt told she cannot leave yet, pt became teary asking why and how long she has to stay here. when told we don't have the answers to that question pt stated but I don't belong here, I have kids and a job . pt assured that her job cannot do anything because she is in the hospital.
--- NOTE | 2023-08-25 18:37 | PC.NURSE ---
pt calm and cooperative at this time. came out of room looking for dinner. compliant with worklist questions. pt back to room watching tv.
[2023-08-25] MEDS: diphenhydrAMINE HCL 25 MG CAPSULE 50 MG PO (21:18)
--- NOTE | 2023-08-25 23:00 | PC.NURSE ---
PT inquired about when she could leave. Informed her that she is on a section 12 and is not able to leave at this time. PT became tearful and went back to her room. Pt banging on wall and walking toward door. PT had conversation with remote sensing technologist in which she reported that she cares for her father and is concerned that he has not received a meal drop off since she was brought to the ED. This RN received his contact information and address for her father, Tayo, and called. Her dad reports that he has a friend caring for him and that he is safe and in good care. PT requested to use phone to call boyfriend. Although there is currently a PT in bed 7, remote sensing technologist allowed pt to utilize phone to make one call since cordless phone was not charged yet.. PT and bed7 began to have a verbal altercation and remote sensing technologist requested pt to get off the phone for safety concerns. PT refused and continued her conversation. PT finally got off phone after several of redirections. PT endorsing anxiety and inability to fall asleep. received verbal order from provider. THis RN submitted order and administered as per NOV. Safety precaution in place, Plan of care ongoing.
[2023-08-26 06:00] VITALS: BP 136/89; PULSE 82; RESP 17; TEMP 36.6; O2SAT 99
[2023-08-26] MEDS: Nicotine 21 MG PATCH.TD24 TRANSDERMA (07:35)
[2023-08-26] MEDS: LORazepam 1 MG TABLET PO ×2 (09:32→19:59)
--- NOTE | 2023-08-26 16:26 | PC.NURSE ---
Patient visiting in room with boyfriend. When boyfriend went to leave patient attempting to run out door, staff had to step in front of patient to prevent her from leaving. patient crying but able to be re-directed away from door.
--- NOTE | 2023-08-26 19:14 | PC.NURSE ---
patient appears to remain at rest at present respirations are even and unlabored patient appears in no distress
[2023-08-26 20:43] VITALS: BP 118/73; PULSE 86; RESP 16; TEMP 36.5; O2SAT 99
[2023-08-26] MEDS: diphenhydrAMINE HCL 25 MG CAPSULE 50 MG PO (21:37)
[2023-08-27] MEDS: LORazepam 1 MG TABLET PO ×2 (02:11→08:05)
[2023-08-27 02:25] VITALS: BP 136/86; PULSE 79; RESP 16; TEMP 36.7; O2SAT 99
[2023-08-27] MEDS: Nicotine 21 MG PATCH.TD24 TRANSDERMA (08:05)
[2023-08-27 09:32] LABS: COVID-19 Test Negative (Negative); IDNOW Serial# BCCEAD1C
[2023-08-27 14:15] VITALS: BP 122/75; PULSE 76; RESP 18; TEMP 37; O2SAT 97
--- NOTE | 2023-08-27 15:40 | PC.NURSE ---
Norma BOYLE this morning. Banging on the doors shortly after repeating I want to go home . Able to respond to redirection but continues behavior shortly after. Continues to be intrusive with peers. Had visit with boyfriend and required multiple redirections on appropriate boundaries. Given Ativan 1mg PO PRN for anxiety at 0804 with good effect. Appetite good. Denies current SI/HI/AVH.
[2023-08-27 19:58] VITALS: BP 130/92; PULSE 76; RESP 18; TEMP 36.6; O2SAT 100
[2023-08-27] MEDS: traZODone HCL 50 MG TABLET PO ×2 (21:17→22:16)
--- NOTE | 2023-08-27 21:27 | PC.NURSE ---
Patient signed three day notice on Sunday08/27/23, up 08/30/23. Voicemail left with Johana Gomez updating on patient status. ESTEFANI ARGUELLO.
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
[2023-08-28 08:00] VITALS: BP 124/80; PULSE 76; RESP 18; TEMP 36.4; O2SAT 96
[2023-08-28 08:32] LABS: Alanine Aminotransferase 13 U/L (0-31); Albumin Level 3.6 g/dL (3.5-5.0); Alkaline Phosphatase 96 U/L (39-117); Anion Gap 10 (12-20); Aspartate Amino Transferase 14 U/L (5-31); Bilirubin Total 0.4 mg/dL (0.0-1.0); Blood Urea Nitrogen 12 mg/dL (9-16); Calcium 8.8 mg/dL (8.4-10.2); Carbon Dioxide 26 mmol/L (22-29); Chloride 109 mmol/L (96-108); Cholesterol 88 mg/dL (<200); Creatinine Clr Calc Pharmacy 151.2; Estimated Glomerular Filt Rate > 60; Glucose Fasting 95 mg/dL (60-99); HDL Cholesterol 36 mg/dL (>40); LDL Cholesterol Calculated 40 mg/dL (<100); Potassium 4.2 mmol/L (3.3-5.1); Sodium 141 mmol/L (135-145); Total Protein 5.9 g/dL (6.5-8.0); Triglycerides 61 mg/dL (<150)
[2023-08-28] MEDS: LORazepam 1 MG TABLET PO (08:39)
[2023-08-28] MEDS: Acetaminophen 325 MG TABLET 650 MG PO ×2 (08:39→22:05)
[2023-08-28] MEDS: Nicotine 21 MG PATCH.TD24 TRANSDERMA (08:39)
[2023-08-28 08:45] LABS: TSH reflex Free T4 1.44 uIU/mL (0.32-4.0)
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
--- NOTE | 2023-08-28 10:38 | PHA.MEDREC ---
Pharmacy Consult ? Medication Reconciliation Pharmacy has completed the medication reconciliation, only claim hx includes short term antibiotics. Spoke to [facility] pharmacy, confirmed patient has only picked up symbicort last month and has not filled anything else. Tried to call parent on file a couple times with no response, so continued with claims and pharmacy info.
[2023-08-28] MEDS: hydrOXYzine HCL 25 MG TABLET PO ×2 (11:01→22:05)
[2023-08-28 16:58] VITALS: BP 107/59; PULSE 77; TEMP 36.9; O2SAT 98
[2023-08-28] MEDS: cloNIDine HCL 0.1 MG TABLET PO ×2 (18:19→22:07)
[2023-08-28] MEDS: traZODone HCL 50 MG TABLET PO ×3 (19:47→23:24)
[2023-08-28 21:50] VITALS: BP 101/55; PULSE 82; TEMP 36.6; O2SAT 99
--- NOTE | 2023-08-28 22:24 | ECG_ITS ---
Test Reason : Chest pain Blood Pressure : / mmHG Vent. Rate : 071 BPM Atrial Rate : 071 BPM P-R Int : 166 ms QRS Dur : 088 ms QT Int : 412 ms P-R-T Axes : 047 051 052 degrees QTc Int : 447 ms Normal sinus rhythm Normal ECG No previous ECGs available Referred By: Katya Benites Electronically Signed By:MAAME RAMOS MD
[2023-08-29 08:00] VITALS: BP 96/64; PULSE 75; RESP 16; TEMP 36.5; O2SAT 99
[2023-08-29] MEDS: Fluticasone/Vilanterol 200/25 BLST.W.DEV 1 PUFF INHALE (08:44)
[2023-08-29] MEDS: Venlafaxine HCl ER 37.5 MG CAP.ER.24H PO (08:44)
[2023-08-29] MEDS: cloNIDine HCL 0.1 MG TABLET PO ×2 (08:44→15:34)
[2023-08-29 10:57] LABS: Folate 6.4 ng/mL (> or = 4.0); Vitamin B12 297 pg/mL (200-900)
--- NOTE | 2023-08-29 11:01 | HO.PSYCHPN ---
Subjective Subjective Date of Service: 08/29/23 Reason For Visit: suicidal ideation/ pcp use Subjective Notes: 3 Day Interim History: Three day notice to 08/30. Pt requesting another test. Two previous are negative. Ordered, but not drawn. Reports menses are overdue. Reports breast tissue changes. She has not had a previous mammogram but is willing to pursue as an out pt. Area of dermatitis on breast which pt reports is new. Family history of breast cancer on both sides she reports. Partner visited. Pt denies current psychiatric symptoms. On the unit she is labile, in behavioral control with high energy. Responding to team setting boundaries. Planning discharge for 08/30. Medication Compliance: Yes Side effects from medications: No Attending Groups: No Review of Systems Acute medical concerns: Yes Will need OP mammogram scheduled. Medical Review of Systems: unchanged Review of Systems Skin/Breast: Reports breast skin changes Mental Status Exam Mental Status Exam Patient Appearance: Appropriate Patient Orientation: Person, Place, Time and Situation Level of Consciousness: Restless and Alert Patient Behavior: Talkative, Hyperactive and Good Eye Contact Mood Description: Labile Affect Description: Labile Patient Cognition Impaired: No Ability to Follow Directions: Good Speech Pattern: Spontaneous Speech and Loud Memory Description: Episodic Impaired Hallucinations: None Delusions: Not Present Thought Process: Intact Thought Content: positive for Flight of Ideas and positive for Suicidal Ideation (denies) Abnormal Motor Activity Signs and Symptoms: Restlessness Judgement: Good Diagnostics Vital Signs (24Hr): Vital Signs - 24 hr 08/28/23 16:58 08/28/23 21:50 08/29/23 08:00 Temperature 98.4 F 97.8 F 97.7 F Pulse Rate 77 82 75 Respiratory Rate 16 Blood Pressure 107/59 L 101/55 L 96/64 Pulse Oximetry 98 99 99 Oxygen Delivery Method Room Air Room Air Room Air BMI result Body Mass Index 38.5 Labs 08/24/23 15:13 08/28/23 07:40 Labs: Laboratory Results - last 48 hr 08/28/23 08/29/23 07:40 09:21 Sodium 141 Potassium 4.2 D Chloride 109 H Carbon Dioxide 26 Anion Gap 10 L BUN 12 Creatinine 0.63 Estim Creat Clear Calc 151.2 Estimated GFR > 60 Fasting Glucose 95 Calcium 8.8 Total Bilirubin 0.4 AST 14 ALT 13 Alkaline Phosphatase 96 Total Protein 5.9 L Albumin 3.6 Triglycerides 61 Cholesterol 88 LDL Cholesterol, Calc 40 HDL Cholesterol 36 L Vitamin B12 297 Folate 6.4 TSH 1.44 Medications Medications Current Medications Acetaminophen (Acetaminophen 325 Mg Tablet) 650 mg PO Q6H PRN PRN Reason: Headache/Pain Mild Scale (1-3) Last Admin: 08/28/23 22:05 Dose: 650 mg Al Hydroxide/Mg Hydroxide (Magnesium Hydrox/Alum Hydrox 30 Ml Oral.Susp) 30 ml PO Q6H PRN PRN Reason: Heartburn/Nausea Albuterol Sulfate (Albuterol Sulfate 90 Mcg 8 Gm Inhaler) 2 puff INHALE RQ4H PRN PRN Reason: SOB/wheezing Clonidine HCl (Clonidine Hcl 0.1 Mg Tablet) 0.1 mg PO Q4H PRN; Protocol PRN Reason: anxiety Last Admin: 08/29/23 08:44 Dose: 0.1 mg Fluticasone/Vilanterol (Fluticasone/Vilanterol 200/25 Blst.W.Dev) 1 puff INHALE RDAILY [facility] Last Admin: 08/29/23 08:44 Dose: 1 puff Hydroxyzine HCl (Hydroxyzine Hcl 25 Mg Tablet) 25 mg PO Q6H PRN PRN Reason: Anxiety Last Admin: 08/28/23 22:05 Dose: 25 mg Magnesium Hydroxide (Milk Of Magnesia 30 Ml Oral.Susp) 30 ml PO DAILY PRN PRN Reason: Constipation Nicotine (Nicotine 21 Mg Patch.Td24) 21 mg TRANSDERMA DAILY [facility] Last Admin: 08/29/23 08:48 Dose: Not Given Trazodone HCl (Trazodone Hcl 50 Mg Tablet) 50 mg PO BEDTIME MRX1 PRN PRN Reason: Insomnia Last Admin: 08/28/23 23:24 Dose: 50 mg Venlafaxine HCl (Venlafaxine Hcl Er 37.5 Mg Cap.Er.24h) 37.5 mg PO DAILY [facility] Last Admin: 08/29/23 08:44 Dose: 37.5 mg Allergies Allergies Allergy/AdvReac Type Severity Reaction Status Date / Time latex Allergy Rash Verified 03/06/23 18:11 Assessment & Plan Patient educated on: therapeutic strategies Informed Consent: understands Reason for continued inpatient stay Substantial Risk for: rapid decompensation Time Spent With Patient Time: Total time managing care of this patient today ____ minutes.
[2023-08-29] MEDS: hydrOXYzine HCL 25 MG TABLET PO (12:01)
[2023-08-29] MEDS: Acetaminophen 325 MG TABLET 650 MG PO ×2 (12:01→20:19)
[2023-08-29 12:59] LABS: HCG Quantitative < 2 mIU/mL
[2023-08-29 15:35] VITALS: BP 110/63; PULSE 79
[2023-08-29 18:00] VITALS: BP 114/57; PULSE 68; TEMP 36.3; O2SAT 99
[2023-08-29] MEDS: traZODone HCL 50 MG TABLET PO ×2 (20:18→21:40)
[2023-08-30] MEDS: hydrOXYzine HCL 25 MG TABLET PO ×2 (00:53→10:37)
[2023-08-30 08:30] VITALS: BP 115/59; PULSE 67; RESP 18; TEMP 36.4; O2SAT 98
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
[2023-08-30] MEDS: Nicotine 21 MG PATCH.TD24 TRANSDERMA (08:54)
[2023-08-30] MEDS: Fluticasone/Vilanterol 200/25 BLST.W.DEV 1 PUFF INHALE (08:54)
[2023-08-30] MEDS: Venlafaxine HCl ER 37.5 MG CAP.ER.24H PO (08:57)
[2023-08-30] MEDS: Naloxone HCl Nasal TAKE HOME 4 MG SPRAY 8 MG NOSTRILALT (10:09)
== END 2023-08-30 10:51 | disposition home or self-care (01) | DRG 755 ==
LOC: HO.ED 08-25 07:37 → HO.PM5 08-27 15:30
PROVIDERS: Social Worker; Admitting Provider Psychiatry & Neurology Psychiatry; Emergency Provider Emergency Medicine Emergency Medical Services; Visit Provider Psychiatry & Neurology Psychiatry
DX: F43.25 Adjustment disorder with mixed disturbance of emotions and conduct (principal); R45.851 Suicidal ideations; F43.10 Post-traumatic stress disorder, unspecified; F10.90 Alcohol use, unspecified, uncomplicated; F16.20 Hallucinogen dependence, uncomplicated; F17.210 Nicotine dependence, cigarettes, uncomplicated; Z20.822 Contact with and (suspected) exposure to COVID-19; Z91.040 Latex allergy status; Z71.6 Tobacco abuse counseling; Z79.899 Other long term (current) drug therapy
CPT/HCPCS: 0241U; 36415; 80053; 80061; 80307; 81003; 82607; 82746; 83690; 84443; 84702; 85025; 87635; 93005; 94640; 99285; J2060; J2405; S9485

== ENCOUNTER 2023-08-27 15:23 | Outpatient (BNV) | payer OTHER, SELFPAY | END 2023-08-28 22:24 | PROVIDERS: Admitting Provider Psychiatry & Neurology Psychiatry; Emergency Provider Emergency Medicine Emergency Medical Services; Visit Provider Internal Medicine Cardiovascular Disease | DX: R07.9 Chest pain, unspecified (principal) | CPT/HCPCS: 93010 ==

== ENCOUNTER → 2023-08-27 15:23 | Outpatient (BNV) | payer OTHER, SELFPAY | PROVIDERS: Admitting Provider Psychiatry & Neurology Psychiatry; Emergency Provider Emergency Medicine Emergency Medical Services; Visit Provider Psychiatry & Neurology Psychiatry | DX: F16.20 Hallucinogen dependence, uncomplicated (principal); F43.11 Post-traumatic stress disorder, acute; F10.90 Alcohol use, unspecified, uncomplicated | CPT/HCPCS: 99231; 99232 ==

== ENCOUNTER 2024-05-21 19:36 | Emergency (ER) | payer SELFPAY ==
--- NOTE | ~2024-05-21 | CT_ITS ---
EXAMINATION: CT HEAD WITHOUT IV CONTRAST, CT CERVICAL SPINE WITHOUT IV CONTRAST, CT MAXILLOFACIAL WITHOUT IV CONTRAST INDICATION INFORMATION: fall head strike COMPARISON: None TECHNIQUE: Separate noncontrast CT examinations of the head, face, and cervical spine were performed. Coronal and sagittal images were created for each examination at the technologist workstation. This CT examination was performed using dose optimization techniques as appropriate, variously including the following: *Automated exposure control *Adjustment of mA and/or kV according to patient size (this includes techniques or standardized protocols for targeted exams where dose is matched to indication/reason for exam; i.e. extremities or head) *Use of iterative reconstruction technique DLP: 15 42 mGy-cm FINDINGS: Head: No acute osseous or soft tissue abnormality. The mastoid air cells and visualized portions of the paranasal sinuses are well aerated. There is no evidence of acute intracranial hemorrhage or territorial infarction. No abnormal mass effect or midline shift is seen. Luna to white matter differentiation is well preserved. No extra-axial fluid collections are identified. No hydrocephalus. No significant volume loss. There is no abnormal attenuation within the brain parenchyma. Facial Bones: There is no evidence of an acute facial bone fracture. The paranasal sinuses are well aerated. Periapical lucency involving the right maxillary incisor. The orbits are unremarkable in appearance. Cervical spine: There is no evidence of acute cervical spine fracture. Vertebral bodies remain normal in height. Alignment is maintained. Disc space heights are maintained. No pre- or paravertebral soft tissue abnormality is identified. Visualized portions of the lung apices are unremarkable. The thyroid gland is unremarkable. CT/CT cervical spine wo IV con IMPRESSION: 1. No acute intracranial abnormality. 2. No cervical spine fracture or traumatic malalignment. 3. No facial fracture. Electronically signed by: Cooper Benjamin MD 05/21/2024 08:43 PM EDT
[2024-05-21 19:42] VITALS: BP 135/82; PULSE 74; RESP 18; TEMP 36.4; O2SAT 98; BMI 32.6
--- NOTE | 2024-05-21 19:42 | ED_ITS ---
HPI - General Adult General Chief complaint: Head Injury Stated complaint: fell a few days ago Time Seen by Provider: 05/21/24 21:36 Source: patient, RN notes reviewed and old records reviewed Mode of arrival: ambulatory Limitations: no limitations History of Present Illness ED Provider: Bailee INGRAM narrative: 33-year-old female presents for evaluation of right-sided facial pain. Patient reports that 9 days ago she slipped in the bathroom at [employer]. She reports that she struck the right side of her face below her right eye She reports that it was initially bruised and she had minor discomfort. She states the pain continues despite the bruise resolving She has some sensitivity to light in the right eye and some tearing in the eye She reports some blurry vision She does not wear contacts or glasses The patient denies losing consciousness when she fell Related Data Home Medications ?Medication ?Instructions ?Recorded ?Confirmed budesonide-formoterol HFA 160 2 puff inhalation BID 08/26/23 08/26/23 mcg-4.5 mcg/actuation aerosol inhaler (Symbicort) Previous Rx's ?Medication ?Instructions ?Recorded albuterol sulfate 90 mcg/actuation 2 puff inhalation RQ4H PRN 08/30/23 aerosol inhaler SOB/wheezing 30 days #6.7 grams clonidine HCl 0.1 mg tablet 0.1 mg PO TID PRN anxiety 30 days 08/30/23 #30 tabs hydroxyzine HCl 25 mg tablet 25 mg PO Q6H PRN Anxiety 30 days 08/30/23 #60 tabs nicotine 21 mg/24 hr daily 21 mg transdermal DAILY 28 days 08/30/23 transdermal patch #28 ea trazodone 50 mg tablet 50 mg PO BEDTIME PRN Insomnia 30 08/30/23 days #30 tabs venlafaxine 37.5 mg 37.5 mg PO DAILY 30 days #30 caps 08/30/23 capsule,extended release 24 hr Allergies Allergy/AdvReac Type Severity Reaction Status Date / Time latex Allergy Rash Verified 05/21/24 19:45 Review of Systems Constitutional: Constitutional: Denies body ache(s), Denies chills, Denies fever(s) and Reports headache(s) Eyes: Eyes: Reports irritation, Denies seeing flashes and Reports photophobia ENT: Denies vertigo and Reports headache(s) Cardiovascular: Cardiovascular: Denies chest pain Neurologic: Denies vertigo and Reports headache(s) [facility] Past Medical History Medical History (Updated 05/21/24 @ 22:14 by Cooper Morocho) PTSD (post-traumatic stress disorder) Asthma Surgical History S/P cholecystectomy Social History Social History Household Members: None Household Members Other:: lives alone Housing: Apartment Do you presently have visiting nurse or other home services: No Alcohol intake: current Alcohol intake frequency: 3 or more drinks per day Alcohol type: hard liquor Patient Tobacco Use Status: Current everyday Tobacco user Tobacco use type: Cigarette Cigarette Packs Per Day: 1 Cigarettes Per Day: 20.0 Years Smoked: 20 e-Cigarette/Vaping Use: Never Used Substance Use Type: Marijuana Advance Directives: No Advance Directives Information Provided: No service: No Sexual orientation: Straight/Heterosexual Physical Exam ED Vital Signs: Vital Signs - 24 hr 05/21/24 19:42 05/21/24 21:29 05/21/24 22:25 Temperature 97.6 F 97.8 F 97.8 F Pulse Rate 74 71 71 Respiratory Rate 18 16 16 Blood Pressure 135/82 121/64 121/64 Pulse Oximetry 98 97 97 Oxygen Delivery Method Room Air Room Air Room Air BMI result Body Mass Index 32.6 Const General: healthy appearing, comfortable, no acute distress, alert and awake Nutritional Appearance: well nourished Orientation/consciousness: patient oriented x3 Eyes Other: There is mild right infraorbital edema and tenderness in the infraorbital region, no step-offs or deformities. Eyelids: Yes eyelids normal Conjunctivae: conjunctivae normal Sclerae: sclerae normal Corneas: corneas normal Pupils: Equal, round and reactive pupils present EOM: EOMs intact bilaterally Direct Ophthalmoscopy: photophobia Neck Neck: Yes full ROM Resp Effort & Inspection: normal respiratory effort, able to speak in complete sentences and not labored Skin General skin exam: elasticity normal Neuro General: patient oriented x3 Cranial nerves: Yes CN's II-XII intact bilaterally, Yes Equal, round and reactive pupils present and Yes Bilaterally intact EOM present Cognition (Neuro): normal cognition Extrem Other: Moving all extremities well without any obvious deformities Course Course Course Narrative: This is an RME done by ROBY Neville: Additional HPI, ROS, PE not included below will be deferred to primary provider. This is a 33-year-old female presenting with right-sided facial pain status post slip and fall on May 12, patient reports she slipped on a wet ground, fell forward and hit herself on the bathroom, since then has been having facial pain, headache. She has been very busy and that is why she did not come in sooner. On exam there is slight discomfort with palpation of right zygomatic arch. Plan- imaging Reevaluation(s) Reevaluation #1: Visual acuity exam performed by myself. The patient is 20/30 bilaterally, 20/40 monocular the on the left and 20/40 monocular the on the right Time: 22:13 Medications Administered Discontinued Medications Generic Name Dose Route Start Last Admin Trade Name Freq PRN Reason Stop Dose Admin Fluorescein Sodium 1 strip 05/21/24 22:00 05/21/24 22:25 Fluorescein Sodium Strip EYE-RIGHT 05/21/24 22:01 1 strip ONCE ONE Administration Tetracaine HCl 1 drop 05/21/24 22:00 05/21/24 22:25 Tetracaine Hcl/Pf 0.5% Oph Mirta 4 Ml Drops EYE-RIGHT 05/21/24 22:01 1 drop ONCE ONE Administration Medical Decision Making Medical Decision Making [facility] Narrative: Patient presents for evaluation of facial trauma of the happened [address] scan of the cervical spine, facial bones and brain unremarkable for traumatic injury. The patient's visual acuity is mildly worse in the right eye compared to the left. Fluorescein stain shows no evidence of corneal abrasion. She has no warning signs to suggest traumatic retinal detachment. The patient will follow up with Ophthalmology as an outpatient Differential Diagnosis Differential Diagnoses: The differential diagnosis associated with the presentation includes Facial pain Orbital fracture Contusion Corneal abrasion Discharge Plan Discharge Clinical Impression: Facial pain Patient Disposition: Home, Self-Care Instructions: Acute Headache (ED) Additional Instructions: Your CT scans did not show any traumatic injury. You do not have a corneal abrasion on your eye You may follow-up with Ophthalmology, Dr. Gtz at the number provided Return for new or worsening symptoms Prescriptions: No Action budesonide-formoterol [Symbicort] 160-4.5 mcg/actuation HFA aerosol inhaler 2 puff INHALATION BID albuterol sulfate 90 mcg/actuation Hfa Aerosol Inhaler 2 puff inhalation RQ4H PRN (Reason: SOB/wheezing) 30 Days Qty: 6.7 0RF nicotine 21 mg/24 hr Patch 24 Hour 21 mg transdermal DAILY 28 Days Qty: 28 0RF clonidine HCl 0.1 mg Tablet 0.1 mg PO TID PRN (Reason: anxiety) 30 Days Qty: 30 0RF Protocol: Hold for SBP< HOLD for SBP < : 90 hydroxyzine HCl 25 mg Tablet 25 mg PO Q6H PRN (Reason: Anxiety) 30 Days Qty: 60 0RF trazodone 50 mg Tablet 50 mg PO BEDTIME PRN (Reason: Insomnia) 30 Days Qty: 30 0RF venlafaxine 37.5 mg Capsule,Extended Release 24hr 37.5 mg PO DAILY 30 Days Qty: 30 0RF Referrals: Marito Gtz [Physician] - (right eye pain) Interventions: ED Discharge Assessment Last Done: 05/21/24 22:25 Discharge Date/Time: 05/21/24 22:26 Print Language: Montenegrin
[2024-05-21 21:29] VITALS: BP 121/64; PULSE 71; RESP 16; TEMP 36.6; O2SAT 97
[2024-05-21 22:25] VITALS: BP 121/64; PULSE 71; RESP 16; TEMP 36.6; O2SAT 97
[2024-05-21] MEDS: Tetracaine HCl/PF 0.5% Oph Sol 4 ML DROPS 1 DROP EYE-RIGHT (22:25)
[2024-05-21] MEDS: Fluorescein Sodium STRIP 1 STRIP EYE-RIGHT (22:25)
== END 2024-05-21 22:26 | disposition home or self-care (01) ==
PROVIDERS: Emergency Provider Internal Medicine
DX: R51.9 Headache, unspecified (principal); M54.2 Cervicalgia; H53.8 Other visual disturbances; H57.11 Ocular pain, right eye; F17.210 Nicotine dependence, cigarettes, uncomplicated; Z79.899 Other long term (current) drug therapy
CPT/HCPCS: 70450; 70486; 72125; 99282; 99284

== ENCOUNTER 2024-06-12 11:29 | Emergency (ER) | payer SELFPAY ==
[2024-06-12 11:43] VITALS: BP 126/66; PULSE 80; O2SAT 96
--- NOTE | 2024-06-12 11:49 | ED_ITS ---
HPI - General Adult General Chief complaint: ETOH/Substance Use Stated complaint: UNRESPONSIVE,COMBATIVE/4PT,ETOH USE,?SZ Time Seen by Provider: 06/12/24 11:48 Source: patient and EMS Mode of arrival: EMS Limitations: no limitations History of Present Illness ED Provider: Gabby Chan PA-C HPI narrative: Patient is a 34 year old assigned female at with a history of PTSD, PCP use, alcohol use, and anxiety presenting to the emergency department today with acute intoxication. EMS states that the patient was found unresponsive on the bus and someone called 911. Patient states that she has been drinking and does not want to be here. Patient denies any dizziness, lightheadedness, abdominal pain, nausea, vomiting, fever, chills, blurry vision, double vision, loss of vision, chest pain, difficulty breathing, shortness of breath, back pain, night sweats, pain with urination, increased urinary frequency, increased urinary urgency, blood in her urine or stool, syncope or a near syncopal episode, recent trauma or falls, bowel incontinence, bladder incontinence, or any other complaints at this time. Relieving factors: none Exacerbating factors: none Associated symptoms: denies other symptoms Treatments prior to arrival: none Related Data Home Medications ?Medication ?Instructions ?Recorded ?Confirmed budesonide-formoterol HFA 160 2 puff inhalation BID 08/26/23 08/26/23 mcg-4.5 mcg/actuation aerosol inhaler (Symbicort) Previous Rx's ?Medication ?Instructions ?Recorded albuterol sulfate 90 mcg/actuation 2 puff inhalation RQ4H PRN 08/30/23 aerosol inhaler SOB/wheezing 30 days #6.7 grams clonidine HCl 0.1 mg tablet 0.1 mg PO TID PRN anxiety 30 days 08/30/23 #30 tabs hydroxyzine HCl 25 mg tablet 25 mg PO Q6H PRN Anxiety 30 days 08/30/23 #60 tabs nicotine 21 mg/24 hr daily 21 mg transdermal DAILY 28 days 08/30/23 transdermal patch #28 ea trazodone 50 mg tablet 50 mg PO BEDTIME PRN Insomnia 30 08/30/23 days #30 tabs venlafaxine 37.5 mg 37.5 mg PO DAILY 30 days #30 caps 08/30/23 capsule,extended release 24 hr Allergies Allergy/AdvReac Type Severity Reaction Status Date / Time latex Allergy Rash Verified 06/12/24 11:53 Review of Systems Constitutional: Constitutional: Reports no additional constitutional complaints, Denies chills, Denies fever(s) and Denies night sweats Eyes: Eyes: Reports no additional eye complaints, Denies blurry vision, Denies change in vision, Denies diplopia, Denies eye discharge, Denies loss of vision and Denies eye pain ENT: Denies dizziness Cardiovascular: Cardiovascular: Reports no additional cardiovascular complaints, Denies chest pain, Denies lightheadedness, Denies Loss of Consciousness and Denies dyspnea Respiratory: Respiratory: Reports no additional respiratory complaints and Denies dyspnea Gastrointestinal: Gastrointestinal: Reports no additional gastrointestinal complaints, Denies abdominal pain, Denies melena, Denies hematochezia, Denies change in bowel habits and Denies change in stool character Genitourinary: Genitourinary: Denies hematuria, Denies urinary frequency, Denies dysuria, Denies urinary incontinence, Denies urinary hesitancy and Denies urinary urgency Musculoskeletal: Musculoskeletal: Reports no additional musculoskeletal complaints, Denies numbness and Denies tingling Neurologic: Denies dizziness, Denies loss of vision, Denies numbness and Denies tingling Psychiatric: Psychiatric: Reports no additional psychiatric complaints Endocrine: Endocrine: Reports no additional endocrine complaints Hematologic/Lymphatic: Hematologic/Lymphatic: Reports no additional hematologic/lymphatic complaints Allergic/Immunologic: Allergic/Immunologic: Reports no additional allergic/immunologic complaints [facility] Past Medical History Attestation statement: The following information was validated with the patient. Source: old records reviewed and nursing notes reviewed Medical History PTSD (post-traumatic stress disorder) Asthma Surgical History S/P cholecystectomy Social History Social History Household Members: None Household Members Other:: lives alone Housing: Apartment Do you presently have visiting nurse or other home services: No Alcohol intake: current Alcohol intake frequency: 3 or more drinks per day Alcohol type: hard liquor Patient Tobacco Use Status: Current everyday Tobacco user Tobacco use type: Cigarette Cigarette Packs Per Day: 1 Cigarettes Per Day: 20.0 Years Smoked: 20 Smoked in Last 30 Days: Yes e-Cigarette/Vaping Use: Never Used Substance Use Type: Marijuana Advance Directives: No Advance Directives Information Provided: No Do you have a plan to hurt others: No Plan service: No Sexual orientation: Straight/Heterosexual Physical Exam ED Vital Signs: Vital Signs - 24 hr 06/12/24 12:22 06/12/24 16:01 Temperature 0 F L Pulse Rate 0 L Respiratory Rate 18 0 L Blood Pressure 0/0 L Pulse Oximetry 0 L BMI result Body Mass Index 34.3 Const General: cooperative, no acute distress, alert and awake Nutritional Appearance: well nourished Orientation/consciousness: patient oriented x3 Limitations: no limitations HENMT Head: Yes normal to inspection and Yes atraumatic Ears: hearing grossly normal bilaterally and external ears normal General nose exam: Normal external nose present, no nasal discharge noted and no epistaxis Face and sinus: Yes normal facial exam, No abrasion and No laceration Mouth: Normal oral and palatal mucosa present, no drooling and no muffled voice Eyes General: appearance normal, both eyes and all related structures Periorbital: periorbital findings normal Eyelids: Yes eyelids normal Conjunctivae: conjunctivae normal Pupils: Equal, round and reactive pupils present EOM: EOMs intact bilaterally Neck Neck: Yes normal visual inspection, Yes full ROM and Yes no lymphadenopathy Chest Chest palpation & inspection: normal inspection of the chest Resp Effort & Inspection: normal respiratory effort and able to speak in complete sentences GI Inspection: Yes normal to inspection Neuro General: patient oriented x3 and moves all extremities Cranial nerves: Yes Equal, round and reactive pupils present Cognition (Neuro): normal cognition Extrem General: Yes normal to inspection, Yes full ROM and Yes capillary refill normal Psych Appearance: grossly normal Mental Status: mental status grossly normal Affect: normal affect Attitude: cooperative Thought process: Normal thought process present Thought content: Normal thought content present Insight: Good insight present (Psych) Medical Decision Making Medical Decision Making MDM Narrative: Patient is a 34 year old assigned female at with a history of PTSD, PCP use, alcohol use, and anxiety presenting to the emergency department today with acute intoxication. Patient's physical exam showed an acute intoxicated individual. I explained my physical exam findings to the patient. I answered all questions asked by the patient. Patient rested while in the department and became clinically sober, steady on her feet, and of sound mind. Patient awoke and requested to be discharged. Observation care revealed the the patient does not meet medical necessity for hospitalization. Final disposition discussed with the patient who verbalized understanding and agreement. Patient completed observation care at 1600, total time spent in observation care was 3 hours and 8 minutes. I stressed the importance of the patient taking her medication as directed (either prescribed or as the over the counter packaging recommends). I stressed the importance of the patient following up with her primary care provider. I stressed the importance of the patient returning to the emergency department immediately if her symptoms were to worsen or if she were to develop any dizziness, shortness of breath, difficulty breathing, chest pain, blurry vision, loss of vision, nausea, vomiting, abdominal pain, fever, chills, back pain, or any other complaints. Differential Diagnosis Differential Diagnoses: The differential diagnosis associated with the presentation includes Alcohol intoxication Alcohol abuse Alcohol use Admission/Observation Consideration of admission/observation: Escalation of care including admission/observation considered Patient would have been admitted to the hospital had her work up had any findings where hospital admission was appropriate and her clinical presentation warranted hospital admission. Independent Historian Clinical information obtained from an independent historian. History obtained from or confirmed by: EMS (EMS provided additional history and confirmed the history provided by the patient.) Discharge Plan Discharge Clinical Impression: Alcohol use Patient Disposition: Home, Self-Care Instructions: Abuse of Alcohol (DC) Additional Instructions: Follow up with your primary care provider. Return to the emergency department immediately if your symptoms worsen or if you develop any dizziness, shortness of breath, difficulty breathing, chest pain, blurry vision, loss of vision, nausea, vomiting, abdominal pain, fever, chills, back pain, or any other complaints. Prescriptions: No Action budesonide-formoterol [Symbicort] 160-4.5 mcg/actuation HFA aerosol inhaler 2 puff INHALATION BID albuterol sulfate 90 mcg/actuation Hfa Aerosol Inhaler 2 puff inhalation RQ4H PRN (Reason: SOB/wheezing) 30 Days Qty: 6.7 0RF nicotine 21 mg/24 hr Patch 24 Hour 21 mg transdermal DAILY 28 Days Qty: 28 0RF clonidine HCl 0.1 mg Tablet 0.1 mg PO TID PRN (Reason: anxiety) 30 Days Qty: 30 0RF Protocol: Hold for SBP< HOLD for SBP < : 90 hydroxyzine HCl 25 mg Tablet 25 mg PO Q6H PRN (Reason: Anxiety) 30 Days Qty: 60 0RF trazodone 50 mg Tablet 50 mg PO BEDTIME PRN (Reason: Insomnia) 30 Days Qty: 30 0RF venlafaxine 37.5 mg Capsule,Extended Release 24hr 37.5 mg PO DAILY 30 Days Qty: 30 0RF Referrals: [facility] Family Medicine [Provider Group] (Call to establish and follow up with a primary care provider. If you already have a primary care provider, please follow up with them.) [facility] Primary Care, [place] [Provider Group] (Call to establish and follow up with a primary care provider. If you already have a primary care provider, please follow up with them.) [facility] Primary [facility] [Provider Group] (Call to establish and follow up with a primary care provider. If you already have a primary care provider, please follow up with them.) Interventions: ED Discharge Assessment Last Done: 06/12/24 16:01 Discharge Date/Time: 06/12/24 16:02 Print Language: Slovenian
[2024-06-12 11:51] VITALS: BMI 34.3
--- NOTE | 2024-06-12 11:53 | PC.NURSE ---
pt refusing vitals upon arrival to [facility]. changed into HUBERT hidalgo.
--- NOTE | 2024-06-12 12:02 | MHC.EDTECH ---
BELONGINGS IN [facility] C1 PER SECURITY
[2024-06-12 12:22] VITALS: RESP 18
--- NOTE | 2024-06-12 12:22 | PC.NURSE ---
pt appears to be asleep at this time, RR even an unlabored, NAD noted, pt drank zak carmen. 18RR
--- NOTE | 2024-06-12 15:51 | PC.NURSE ---
pt ambulating independently, steady gait. talking in full sentences.
--- NOTE | 2024-06-12 16:00 | PC.NURSE ---
Pt up out of bed ambulating to bathroom with steady gait. Pt verbalizing to this RN she wishes to leave. D/t pt up walking with steady gait, ROBY Pierre made aware. Pt ok to be d/c due to ability to walk with steady gait. Pt refusing all vitals on d/c
[2024-06-12 16:01] VITALS: BP 0/0; PULSE 0; RESP 0; TEMP -17.7; TEMP 0; O2SAT 0
== END 2024-06-12 16:02 | disposition home or self-care (01) ==
PROVIDERS: Emergency Provider Student in an Organized Health Care Education/Training Program
DX: F10.10 Alcohol abuse, uncomplicated (principal); Y90.9 Presence of alcohol in blood, level not specified; R40.4 Transient alteration of awareness; F41.1 Generalized anxiety disorder; F43.0 Acute stress reaction; Z71.41 Alcohol abuse counseling and surveillance of alcoholic; Z79.899 Other long term (current) drug therapy
CPT/HCPCS: 99284

== ENCOUNTER 2024-09-27 15:48 | Emergency (ER) | payer OTHER, SELFPAY ==
--- NOTE | 2024-09-27 15:57 | ED.GENADULT ---
HPI - General Adult General Chief complaint: General Medical Stated complaint: sore throat/mouth pain Time Seen by Provider: 09/27/24 17:44 Related Data Home Medications ?Medication ?Instructions ?Recorded ?Confirmed budesonide-formoterol HFA 160 2 puff inhalation BID 08/26/23 08/26/23 mcg-4.5 mcg/actuation aerosol inhaler (Symbicort) Previous Rx's ?Medication ?Instructions ?Recorded albuterol sulfate 90 mcg/actuation 2 puff inhalation RQ4H PRN 08/30/23 aerosol inhaler SOB/wheezing 30 days #6.7 grams clonidine HCl 0.1 mg tablet 0.1 mg PO TID PRN anxiety 30 days 08/30/23 #30 tabs hydroxyzine HCl 25 mg tablet 25 mg PO Q6H PRN Anxiety 30 days 08/30/23 #60 tabs nicotine 21 mg/24 hr daily 21 mg transdermal DAILY 28 days 08/30/23 transdermal patch #28 ea trazodone 50 mg tablet 50 mg PO BEDTIME PRN Insomnia 30 08/30/23 days #30 tabs venlafaxine 37.5 mg 37.5 mg PO DAILY 30 days #30 caps 08/30/23 capsule,extended release 24 hr Allergies Allergy/AdvReac Type Severity Reaction Status Date / Time latex Allergy Rash Verified 09/27/24 15:59 PMFSH Past Medical History Medical History PTSD (post-traumatic stress disorder) Asthma Surgical History S/P cholecystectomy Social History Social History Household Members: None Household Members Other:: lives alone Housing: Apartment Do you presently have visiting nurse or other home services: No Alcohol intake: current Alcohol intake frequency: 3 or more drinks per day Alcohol type: hard liquor Patient Tobacco Use Status: Current everyday Tobacco user Tobacco use type: Cigarette Cigarette Packs Per Day: 1 Cigarettes Per Day: 20.0 Years Smoked: 20 e-Cigarette/Vaping Use: Never Used Substance Use Type: Marijuana Advance Directives: No Advance Directives Information Provided: No service: No Sexual orientation: Straight/Heterosexual Physical Exam ED Vital Signs: BMI result Body Mass Index 30.0 Course Course Course Narrative: This is an RME: Additional HPI, ROS, PE not included below will be deferred to primary provider. RME assessment and note performed by: Radha Webster PA-C This is a 53-guvr-iep-female, with a hx of PTSD, PCP use, etoh use, anxiety, who presents to the ER with complaints of sore throat x 3 days. No known fevers. Reports vomiting, no diarrhea. No CP/SOB. Daughter recently had whooping cough. Plan: strep, viral swabs, labs Reevaluation(s) Reevaluation #1: Patient left without completing treatment. Medical Decision Making Lab Data Labs: Lab Results 09/27/24 Range/Units 16:10 Influenza Type A (PCR) NEGATIVE (Negative) Influenza Type B (PCR) NEGATIVE (Negative) RSV RNA Qual (PCR) NEGATIVE (Negative) SARS-CoV-2 RNA (RT-PCR) NEGATIVE (Negative) S. pyogenes GrpA CANDICE Negative (Negative) Discharge Plan Discharge Clinical Impression: Acute sore throat Patient Disposition: Left W/O Completing Treatment Prescriptions: No Action budesonide-formoterol [Symbicort] 160-4.5 mcg/actuation HFA aerosol inhaler 2 puff INHALATION BID albuterol sulfate 90 mcg/actuation Hfa Aerosol Inhaler 2 puff inhalation RQ4H PRN (Reason: SOB/wheezing) 30 Days Qty: 6.7 0RF nicotine 21 mg/24 hr Patch 24 Hour 21 mg transdermal DAILY 28 Days Qty: 28 0RF clonidine HCl 0.1 mg Tablet 0.1 mg PO TID PRN (Reason: anxiety) 30 Days Qty: 30 0RF Protocol: Hold for SBP< HOLD for SBP < : 90 hydroxyzine HCl 25 mg Tablet 25 mg PO Q6H PRN (Reason: Anxiety) 30 Days Qty: 60 0RF trazodone 50 mg Tablet 50 mg PO BEDTIME PRN (Reason: Insomnia) 30 Days Qty: 30 0RF venlafaxine 37.5 mg Capsule,Extended Release 24hr 37.5 mg PO DAILY 30 Days Qty: 30 0RF Discharge Date/Time: 09/27/24 20:28
[2024-09-27 15:58] VITALS: BP 155/94; PULSE 88; RESP 19; TEMP 36.8; O2SAT 98
[2024-09-27 16:22] LABS: IDNOW Serial# 58CA691E
[2024-09-27 16:23] LABS: Strep A Nucleic Acid Negative (Negative)
[2024-09-27 17:08] LABS: Influenza A PCR NEGATIVE (Negative); Influenza B PCR NEGATIVE (Negative); Resp Syncy Virus RNA Qual PCR NEGATIVE (Negative); SARS COV2 PCR INHOUSE NEGATIVE (Negative)
--- OUTSIDE RECORDS SUMMARY | 2024-09-27 18:36 | XMS_ITS | Continuity of Care Document ---
Author Organization [facility] Address [address] [place] [address] Phone Care Team Providers Care Web Portal Developer Name Role Phone Mimi Lee APRN Unavailable Unavailable Allergies, Adverse Reactions, Alerts Substance Reaction Status Criticality latex Active No Information Medications Medication Instructions Dosage Effective Dates (start - stop) Status Comments Keflex 500 mg capsule take 1 capsule by oral route every 8 hours 500 MG - Active ibuprofen 600 mg tablet take 1 tablet by oral route 3 times every day with food 600 MG - Active prednisone 20 mg tablet take 1 tablet by oral route every day 20 MG - Active PROAIR HFA 90 MCG [...] Copied on Encounter OFFICE/OUTPA TIENT VISIT, EST [facility], [address] [place], [address], [place] tel:[phone] [facility] Breast Lump (chief complaint) Left breast abscess 7 Mule Mimi. [address], [id number] [address] [place] [address], [address], [place]. tel:[phone] OFFICE/OUTPA TIENT VISIT, [facility], [address] [place] [address], [address], [place] tel:[phone] [facility] Adult Medicine Sore throat (chief complaint) Body mass index (BMI) 39.0-39.9, adultTonsill itisAcute pharyngitis, unspecified 7 No Information OFFICE/OUTPA TIENT VISIT, [facility], [address] [place] [address], [address], [place] tel:[phone] [facility] Breakthrough bleeding (chief complaint) Encounter for screening, unspecifiedE ncounter for test, result negativeBrea kthrough bleeding on Nexplanon 6 No Information [facility], [address] [place] [address], [address], [place] tel:[phone] [facility] Adult Medicine No Information 6 No Information OFFICE/OUTPA TIENT VISIT, [facility], [address] [place] [address], [address], [place] tel:[phone] [facility] Adult Medicine TRIAGE (chief complaint)Ast hma (chief complaint) Unspecified asthma, uncomplicate d 6 No Information OFFICE/OUTPA TIENT VISIT, [facility], [address] [place] [address], [address], [place] tel:[phone] [facility] Adult Medicine asthma sxs (chief complaint)Med ication Administratio n (chief complaint) ASTHMA 5 No Information OFFICE/OUTPA TIENT VISIT, [facility], [address] [place] [address], [address], [place] tel:[phone] [facility] Adult Medicine sore throat (chief complaint) ACUTE PHARYNGITISA cute otitis mediaCOUGHAS THMA 5 No Information [facility], [address] [place], [address], tel:[phone] Conversion ASTHMA 2 No Information [facility], [address] [place], [address], tel:[phone] Conversion ACUTE UPPER RESPIRATORY INFECTIONS OF UNSPECIFIED SITE 1 No Information [facility], [address] [place], [address], tel:[phone] Conversion COUGHNEED FOR HPV VACCINATION 1 No Information [facility], [address] [place], [address], tel:[phone] Historic Immunization Location No Information 1 No Information Family History Family Member Type Diagnosis Age At Onset No Information Immunizations Vaccine Date Status Comments HPV (GARDASIL) 3 DOSE IM administered Rhoda rce: New Immunization Record IMMUNIZATION ADMIN administered Source: N ew Immunization Record Payers Payer name Insurance type Covered libertarian ID Authoriza tielizabeth(s) Vinnie LAKSHMI Noel [id number] Social History Type Description Quantity Date Captured [...] Goal Td vaccine. Due on due Goal Tdap. Due on due Goal Td vaccine. Due on due Goal Diabetes screening. Due on due Goal Depression screening. Due on due Goal Eye exam. Due on due Goal Dental exam. Due on 016 due Goal Pap/HPV testing. Due on due Goal PAP. Due on due Goal Influenza vaccine. Due on due Goal HPV (3rd). Due on 1 due Goal HPV (2nd). Due on 1 due Goal HPV (1st) due Goal HPV (1st). Due on 1 due History Of Present Illness Encounter Date Complaint History Of Prese nt Illness Breast Lump Discovered 1 mon ago. Status: The Patient reports more pain. [...] 2014 and c/o menses longer with LMP. TRIAGE AOX4 25 yo femal e came [...] for medication admin. Patient given albuterol nebulizer.AlbuterolLOT: [id number]:08/2017Patient will be evaluated by one of the providers today at the clinic.Shaila Cai RN Asthma The initial visi t date was [...] poor effect. No albuterol inhaler at home. asthma sxs Medication Administration As req uested by administered Albuterol breathing treatment LOT:[id number] EXP: . Patient wheezing, complained of SOB. After breathing tx patients lung sounds anterior posterior clear bilat. Post tx patient had no complains of SOB.Shaila Cai RN sore throat (comments) Pain with swallowing but [...] Follow up as needed Related to Tonsillitis Dietary management e ducation, guidance, and counseling Related to Body mass index (BMI) 39.0-39.9, adult Weight monitoring Related to Bod y mass index (BMI) 39.0-39.9, adult -Nexplanon inserted 2014 at another clinic, had longer menses with [...] asthma. [facility]. Start expectorant to help thin mucus secretions with plenty of water. Singulair to help reduce seasonal allergies. Follow up with PCP to re-engage in care. Related to Unspecified asthma, uncomplicated - Take all antibioti cs as directed, even if you are feeling better Related to Acute otitis media - Warm salt water ga rgles as needed for throat pain- Tylenol or motrin as needed for throat pain Related to ACUTE PHARYNGITIS - Take guaifenesin t wice a day for the next five days- Increase fluids- Unrelieved or worsened symptoms, fever return to clinic Related to COUGH Assessments Type Assessment Date assessment Left breast abscess Mental Status Date Cognitive Assessment Orientation - [place] ed to time, place, person, situation. Patient Care Teams Name Effective Dates (start - stop) Status Members No Information
== END 2024-09-27 20:28 | disposition left against medical advice (07) ==
PROVIDERS: Physician Assistant Medical; Emergency Provider Emergency Medicine
DX: J02.9 Acute pharyngitis, unspecified (principal); J45.909 Unspecified asthma, uncomplicated; F17.210 Nicotine dependence, cigarettes, uncomplicated; F12.90 Cannabis use, unspecified, uncomplicated; Z03.818 Encounter for observation for suspected exposure to other biological agents ruled out
CPT/HCPCS: 0241U; 87651; 99281; 99283

== ENCOUNTER 2024-09-29 15:52 | Emergency (ER) | payer OTHER, SELFPAY ==
[2024-09-29 17:03] VITALS: BP 138/96; PULSE 90; RESP 18; TEMP 36.6; O2SAT 99; BMI 32.1
--- NOTE | 2024-09-29 17:04 | ED_ITS ---
HPI - General Adult General Chief complaint: Upper Respiratory Symptoms Stated complaint: Sore throat Time Seen by Provider: 09/29/24 18:40 Source: patient and RN notes reviewed Mode of arrival: ambulatory Limitations: no limitations History of Present Illness ED Provider: Radha Webster PA-C HPI narrative: This is a 34-year-old female who presents emergency department with complaints of sore throat and gum swelling. Patient was seen couple of days ago for similar symptoms however left without completing treatment. Denies any fevers or chills. Denies taking any medications to treat her current symptoms. No other complaints or concerns at this time. MD complaint: Dental pain, sore throat Onset (ago): day(s) Relieving factors: none Exacerbating factors: none Associated symptoms: denies other symptoms Treatments prior to arrival: none Related Data Home Medications ?Medication ?Instructions ?Recorded ?Confirmed budesonide-formoterol HFA 160 2 puff inhalation BID 08/26/23 08/26/23 mcg-4.5 mcg/actuation aerosol inhaler (Symbicort) Previous Rx's ?Medication ?Instructions ?Recorded albuterol sulfate 90 mcg/actuation 2 puff inhalation RQ4H PRN 08/30/23 aerosol inhaler SOB/wheezing 30 days #6.7 grams clonidine HCl 0.1 mg tablet 0.1 mg PO TID PRN anxiety 30 days 08/30/23 #30 tabs hydroxyzine HCl 25 mg tablet 25 mg PO Q6H PRN Anxiety 30 days 08/30/23 #60 tabs nicotine 21 mg/24 hr daily 21 mg transdermal DAILY 28 days 08/30/23 transdermal patch #28 ea trazodone 50 mg tablet 50 mg PO BEDTIME PRN Insomnia 30 08/30/23 days #30 tabs venlafaxine 37.5 mg 37.5 mg PO DAILY 30 days #30 caps 08/30/23 capsule,extended release 24 hr amoxicillin 875 mg-potassium 1 tab PO BID 10 days #20 tabs 09/29/24 clavulanate 125 mg tablet Allergies Allergy/AdvReac Type Severity Reaction Status Date / Time latex Allergy Rash Verified 09/29/24 17:06 Review of Systems Review of Systems: Yes all other systems are reviewed and are negative Constitutional: Constitutional: Reports as per HPI [facility] Past Medical History Medical History PTSD (post-traumatic stress disorder) Asthma Surgical History S/P cholecystectomy Social History Social History Household Members: None Household Members Other:: lives alone Housing: Apartment Do you presently have visiting nurse or other home services: No Alcohol intake: current Alcohol intake frequency: 3 or more drinks per day Alcohol type: hard liquor Patient Tobacco Use Status: Current everyday Tobacco user Tobacco use type: Cigarette Cigarette Packs Per Day: 1 Cigarettes Per Day: 20.0 Years Smoked: 20 e-Cigarette/Vaping Use: Never Used Substance Use Type: Marijuana Advance Directives: No Advance Directives Information Provided: No Do you have a plan to hurt others: No Plan service: No Sexual orientation: Straight/Heterosexual Physical Exam ED Vital Signs: Vital Signs - 24 hr 09/29/24 17:03 Temperature 97.9 F Pulse Rate 90 Respiratory Rate 18 Blood Pressure 138/96 H Pulse Oximetry 99 Oxygen Delivery Method Room Air BMI result Body Mass Index 32.1 Const General: cooperative, comfortable and no acute distress Orientation/consciousness: patient oriented x3 Limitations: no limitations HENMT Other: Oropharynx is mildly erythematous, no tonsillar hypertrophy or exudates. Lower dentition in poor repair, with moderate gingival erythema and tenderness palpation, no fluctuance. Head: Yes normal to inspection, Yes normocephalic and Yes atraumatic Ears: hearing grossly normal bilaterally General nose exam: Normal external nose present Face and sinus: Yes normal facial exam Mouth: Normal oral and palatal mucosa present, oropharynx normal and moist mucous membranes Throat: Yes posterior oropharynx normal Eyes General: appearance normal, both eyes and all related structures Eyelids: Yes eyelids normal Conjunctivae: conjunctivae normal Sclerae: sclerae normal Pupils: Equal, round and reactive pupils present EOM: EOMs intact bilaterally Neck Neck: Yes normal visual inspection, Yes full ROM and Yes no lymphadenopathy Lymphatic: no lymphadenopathy noted Chest Chest palpation & inspection: normal inspection of the chest Resp Effort & Inspection: normal respiratory effort and able to speak in complete sentences Auscultation: clear to auscultation bilaterally, no crackles, no rales, no rhonchi and no wheezes Cardio Rate: regular rate Rhythm: regular rhythm Heart sounds: S1 normal heart sound present and S2 normal heart sound present GI Inspection: Yes normal to inspection Skin General skin exam: no rashes or lesions noted Trauma: no lacerations or abrasions Wounds: no wounds Neuro General: patient oriented x3 and moves all extremities Cranial nerves: Yes Equal, round and reactive pupils present Extrem General: Yes normal to inspection Right upper extremity: normal to inspection Left upper extremity: normal to inspection Right lower extremity: normal to inspection Left lower extremity: normal to inspection Medical Decision Making Medical Decision Making [facility] Narrative: This is a 34-year-old female who presents emergency department with complaints of sore throat, and lower gingival swelling and dental pain. On arrival, vital signs within normal limits. She has tenderness to palpation along the lower dentition with obvious dental decay. Discussed with patient that her symptoms are likely secondary to poor dentition and needs to be started on antibiotics. He patient would like to stay to get swabbed. 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 I called the patient as I already did a full exam on her, and sent over antibiotics. Stressed the importance of following up with her dentist. She understands and agrees with plan. Differential Diagnosis Differential Diagnoses: The differential diagnosis associated with the prese ntation includes Pharyngitis, strep, SLIP FILLER, dental decay, dental caries Lab Data [facility] Lab Attestation statement: I reviewed the patient's lab results. Negative Labs: Lab Results 09/29/24 Range/Units 17:38 Influenza Type A (PCR) NEGATIVE (Negative) Influenza Type B (PCR) NEGATIVE (Negative) RSV RNA Qual (PCR) NEGATIVE (Negative) SARS-CoV-2 RNA (RT-PCR) NEGATIVE (Negative) S. pyogenes GrpA CANDICE Negative (Negative) Discharge Plan Discharge Clinical Impression: Pain, dental Patient Disposition: Left W/O Completing Treatment Additional Instructions: You were seen in the emergency department due to sore throat and gum pain. Your teeth are starting to become infected therefore it is very important that you start taking antibiotics. Finish the entire course even if your symptoms improve. You need to follow-up with your dentist. Prescriptions: New amoxicillin-pot clavulanate 875-125 mg tablet 1 tab PO BID 10 Days Qty: 20 0RF No Action budesonide-formoterol [Symbicort] 160-4.5 mcg/actuation HFA aerosol inhaler 2 puff INHALATION BID albuterol sulfate 90 mcg/actuation Hfa Aerosol Inhaler 2 puff inhalation RQ4H PRN (Reason: SOB/wheezing) 30 Days Qty: 6.7 0RF nicotine 21 mg/24 hr Patch 24 Hour 21 mg transdermal DAILY 28 Days Qty: 28 0RF clonidine HCl 0.1 mg Tablet 0.1 mg PO TID PRN (Reason: anxiety) 30 Days Qty: 30 0RF Protocol: Hold for SBP< HOLD for SBP < : 90 hydroxyzine HCl 25 mg Tablet 25 mg PO Q6H PRN (Reason: Anxiety) 30 Days Qty: 60 0RF trazodone 50 mg Tablet 50 mg PO BEDTIME PRN (Reason: Insomnia) 30 Days Qty: 30 0RF venlafaxine 37.5 mg Capsule,Extended Release 24hr 37.5 mg PO DAILY 30 Days Qty: 30 0RF Discharge Date/Time: 09/29/24 20:25
[2024-09-29 17:55] LABS: IDNOW Serial# 58CA691E; Strep A Nucleic Acid Negative (Negative)
[2024-09-29 18:29] LABS: Influenza A PCR NEGATIVE (Negative); Influenza B PCR NEGATIVE (Negative); Resp Syncy Virus RNA Qual PCR NEGATIVE (Negative); SARS COV2 PCR INHOUSE NEGATIVE (Negative)
== END 2024-09-29 20:25 | disposition left against medical advice (07) ==
PROVIDERS: Physician Assistant Medical; Emergency Provider Emergency Medicine Emergency Medical Services
DX: K08.89 Other specified disorders of teeth and supporting structures (principal); J02.9 Acute pharyngitis, unspecified; Z03.818 Encounter for observation for suspected exposure to other biological agents ruled out
CPT/HCPCS: 0241U; 87651; 99281; 99283

== ENCOUNTER 2025-08-22 12:36 | Emergency (ER) | payer OTHER, SELFPAY ==
--- OUTSIDE RECORDS SUMMARY | 2017-03-06 05:45 | XMS_ITS | Continuity of Care Document ---
Author Organization [facility] vices Address [address] [place] [address] Phone Care Team Providers Care Scrum Master Name Role Phone Unavailable Unavailable Unavailable Allergies, Adverse Reactions, Alerts Substance Reaction Status Criticality latex Active No Information Medications Medication Instructions Dosage Effective Dates (start - stop) Status Comments Keflex 500 mg capsule take 1 capsule by oral route every 8 hours 500 MG - Active prednisone 20 mg tablet take 1 tablet by oral route every day 20 MG - Active ibuprofen 600 mg tablet take 1 tablet by oral route 3 times every day with food 600 MG - Active PROAIR HFA 90 MCG INHALER INHALE 1-2 PUFFS EVERY 4 HOURS NEEDED - Active Space Chamber Plus Use daily as needed with albuterol inhaler. J45.9 - Active LATUDA (unknown strength) take 1 tablet by oral route every day with food (at least 350 calories) Not Available - Active Procedures Procedure Date OFFICE/OUTPATIENT VISIT, EST OFFICE/OUTPATIENT VISIT, EST STREP A ASSAY W/OPTIC HEMOGLOBIN URINE TEST, BY VISUAL COLOR CO MPARISON OFFICE/OUTPATIENT VISIT, EST OFFICE/OUTPATIENT VISIT, EST OFFICE/OUTPATIENT VISIT, EST HIV TEST REFUSED OFFICE/OUTPATIENT VISIT, NEW Advance Directives Directive Yes / No Effective Date File Name No Information Encounters Encounter Description Practice Location Reason(s) For Visit Diagnoses Date Provider Providers Copied on Encounter OFFICE/OUTPA TIENT VISIT, EST [facility], [address] [place], [address], [place] tel:[phone] [facility] Breast Lump (chief complaint) Left breast abscess 7 No Information OFFICE/OUTPA TIENT VISIT, [facility], [address] [place], [address], [place] tel:[phone] [facility] Adult Medicine Sore throat (chief complaint) Body mass index (BMI) 39.0-39.9, adultTonsill itisAcute pharyngitis, unspecified 7 No Information OFFICE/OUTPA TIENT VISIT, [facility], [address] [place], [address], [place] tel:[phone] [facility] Breakthrough bleeding (chief complaint) Encounter for screening, unspecifiedE ncounter for test, result negativeBrea kthrough bleeding on Nexplanon 6 No Information [facility], [address] [place] [address], [address], [place] tel:[phone] [facility] Adult Medicine No Information 6 No Information OFFICE/OUTPA TIENT VISIT, [facility], [address] [place], [address], [place] tel:[phone] [facility] Adult Medicine TRIAGE (chief complaint)Ast hma (chief complaint) Unspecified asthma, uncomplicate d 6 No Information OFFICE/OUTPA TIENT VISIT, [facility], [address] [place] [address], [address], [place] tel:[phone] [facility] Adult Medicine asthma sxs (chief complaint)Med ication Administratio n (chief complaint) ASTHMA 5 No Information OFFICE/OUTPA TIENT VISIT, [facility], [address] [place], [address], [place] tel:[phone] [facility] Adult Medicine sore throat (chief complaint) ACUTE PHARYNGITISA cute otitis mediaCOUGHAS THMA 5 No Information [facility], [address] [place] [address], [address], [place] tel:[phone] Conversion ASTHMA 2 No Information [facility], [address] [place], [address], tel:[phone] Conversion ACUTE UPPER RESPIRATORY INFECTIONS OF UNSPECIFIED SITE 1 No Information [facility], [address] [place], [address], tel:[phone] Conversion COUGHNEED FOR HPV VACCINATION 1 No Information [facility], [facility] [place], [address], tel:[phone] Historic Immunization Location No Information 1 No Information Family History Family Member Type Diagnosis Age At Onset No Information Immunizations Vaccine Date Status Comments HPV (GARDASIL) 3 DOSE IM administered Rhoda rce: New Immunization Record IMMUNIZATION ADMIN administered Source: N ew Immunization Record Payers Payer name Insurance type Covered constitution party ID Authoriza tielizabeth(s) ESTELLE MARTINS Noel [id number] Social History Type Description Quantity Date Captured Comments Alcohol Use Details Unknown Caffeine Use Details Unknown Tobacco Use Status Moderate cigarette smoker (10-19 cigs/day) Smoking Status Heavy tobacco smoker Smoking Tobacco Use Details Cigarette: Years Used 9 Cigarette: 10 Cigarettes per day, Pack Year: 4.5 Sex Female Sexual Orientation Straight or heterosexual Vital Signs Date / Time: Height Weight BMI Pulse Rate Blood Pressure Temperature Respiratory Rate Body Surface Area Head Circumference Head Circ. Percentile Wt./Jalen. Percentile BMI percentile Pulse Ox Inhaled Ox 10:36 AM 62.50 in 101.151 kg (223.00 lbs) 40.1 4 kg/m eter (2) 88 /min 132/78 mm[Hg] 16 /min Chief Complaint And Reason For Visit From encounter dated '03/06/2017 10:45'. Breast Lump (chief complaint). Description: Discovered 1 month ago. Status: The Patient reports more pain. Mammography was not done. The mass location is right lower outer quadrant. The mass can be described as firm. Symptom is aggravated by caffeine. Denies relieving factors. Associated symptoms include asymmetry, breast pain (tender), erythema and skin changes. Pertinent negatives include dimpling, fever, lymphadenopathy, nipple itching and nipple retraction. Additional information: Feels warm. Uses Nexplanon for contraception. Drink 2/2 liter cokes per day. Reports dry skin in that area. Denies trauma. Reason For Referral Reason For Referral No Information Plan Of Treatment Date Type Action Status Goal Eye exam. Due on due Goal Td vaccine. Due on due Goal Influenza vaccine. Due on due Goal Tdap. Due on due Goal Depression screening. Due on due Goal Pap/HPV testing. Due on due Goal PAP. Due on due Goal Diabetes screening. Due on due Goal Dental exam. Due on due Goal Diabetes screening. Due on due Goal Td vaccine. Due on 17 due Goal Influenza vaccine. Due on due Goal Dental exam. Due on due Goal Depression screening. Due on due Goal Pap/HPV testing. Due on due Goal PAP. Due on due Goal Tdap. Due on due Goal Eye exam. Due on due Goal Dietary management education , guidance, and counseling completed Goal Tobacco cessation counseling completed Goal Diabetes screening. Due on due Goal Eye exam. Due on due Goal Depression screening. Due on due Goal Pap/HPV testing. Due on due Goal Influenza vaccine. Due on due Goal Dental exam. Due on 016 due Goal PAP. Due on due Goal Tdap. Due on due Goal Td vaccine. Due on 16 due Goal Tdap. Due on due Goal Td vaccine. Due on due Goal Diabetes screening. Due on due Goal Depression screening. Due on due Goal Eye exam. Due on due Goal Dental exam. Due on due Goal Pap/HPV testing. Due on due Goal PAP. Due on due Goal Influenza vaccine. Due on due Goal HPV (3rd). Due on 1 due Goal HPV (2nd). Due on 1 due Goal HPV (1st) due Goal HPV (1st). Due on 1 due History Of Present Illness Encounter Date Complaint History Of Prese nt Illness Breast Lump Discovered 1 mon th ago. Status: The Patient reports more pain. Mammography was not done. The mass location is right lower outer quadrant. The mass can be described as firm. Symptom is aggravated by caffeine. Denies relieving factors. Associated symptoms include asymmetry, breast pain (tender), erythema and skin changes. Pertinent negatives include dimpling, fever, lymphadenopathy, nipple itching and nipple retraction. Additional information: Feels warm. Uses Nexplanon for contraception. Drink 2/2 liter cokes per day. Reports dry skin in that area. Denies trauma. Sore throat Pain scale: 10/1 0. Symptoms are associated with history of asthma, recent cold and sick family member. Symptoms are not associated with recent travel. Aggravating factors include cold air and lying down. Symptoms are not relieved by throat lozenges. Associated symptoms include chills/rigors, cough, fatigue, headache, nasal congestion and pharyngitis. Pertinent negatives include dyspnea, facial pain or rash. Additional information: Sore throat for three days preceeded by URI symptoms; her kids were sick. Negative strep in office. Hx enlarged tonsils. Breakthrough bleeding Onset: 1 m onth ago. Severity level is mild-moderate. Duration is 2 Weeks. Frequency: metrorrhagia. The problem is improved. Pertinent negatives include abdominal pain, back pain, bloating, bruising, constipation, cramps, diarrhea, dizziness, dyspnea, fatigue, headache, nausea, pallor, pelvic pain and swelling. Additional information: Using Nexplanon for contraception since 2014 and c/o menses longer with LMP. Asthma The initial visi t date was 02/28/2016. The symptoms have worsened. Context: allergic. Aggravating factors include smoke. Associated symptoms include awakening with cough, dry cough, hoarseness and post nasal drainage. Pertinent negatives include dyspnea with intense exercise, pleuritic pain, productive cough, reflux, seasonal rhinitis symptoms, sinusitis and wheezing. Additional information: Repots feeling stressed, with a head cold, and had some anxiety and this resulted in her being unable to breath while at home. Took in office albuterol tx with good relief. Taking Day Flu with poor effect. No albuterol inhaler at home. TRIAGE AOX4 25 yo femal e came into clinic wheezing + sputumNo recent travel out of the country neg Ebola s/s, neg TB s/sPatient states she has a PCP here that she only sees when she needs asthma medication refills, patient las evaluated 03/2015No diaphoresis, no fever, skin warm CDI, hearing intact, PERRLA, no dizziness, no tremorsPositvie SOB wheezing bilat anterior posterior lung sounds, no palpatations, no angina, +2 pulses bilat U + L extremities, cap refill < 3 sec, no edemaNo N/V/D, abd soft BSx4, gait steady.Patient seen by for medication admin. Patient given albuterol nebulizer.AlbuterolLOT: [id number]:08/2017Patient will be evaluated by one of the providers today at the clinic.Shaila Cai RN Medication Administration As req uested by administered Albuterol breathing treatment LOT:[id number] EXP: . Patient wheezing, complained of SOB. After breathing tx patients lung sounds anterior posterior clear bilat. Post tx patient had no complains of SOB.Shaila Cai RN asthma sxs sore throat (comments) Pain with swallowing but did have a yogurt this morning and says she has had plenty of fluids to drink. Denies medication allergies. sore throat Onset: 3 Days. T he problem is severe. Pain scale: 9/10. The problem has not changed. The symptoms are persistent. Symptoms are associated with history of asthma, recent cold, sick family member and smoker. Symptoms are not associated with dental infection, exposure to strep, history of allergies and recent travel. The denies aggravating factors. Symptoms are relieved by throat lozenges and cold water. Associated symptoms include chills/rigors, cough, dyspnea, fatigue, otalgia, pharyngitis, sputum (green, thick) and wheezing. Pertinent negatives include facial pain, fever, headache, hemoptysis, myalgia, nasal congestion, postnasal drainage, rash, rhinitis, sinus pressure or tooth pain. Additional information: Boyfriend and 2 kids sick recently. No recent antibiotics. Throat lozenges not helpful. Thick green phlegm with cough for 3 days. Dyspnea on exertion. Sypmptoms built gradually. Functional Status Date Functional Assessmen t Pain Score 0/10 Instructions Date Instruction Additional Infor devan Return to office 1 w kTake antibiotics as prescribed. Use warm compresses 3 times per day. Related to Left breast abscess 1. This appears to b e viral in nature which requires symptomatic care2. Complete prednisone burst for 4 days3. Use ibuprofen as needed for pain and malaise4. Increase water intake (aim for 8-10 glasses of water per day)5. Follow up as needed Related to Tonsillitis Weight monitoring Related to Bod y mass index (BMI) 39.0-39.9, adult Dietary management e ducation, guidance, and counseling Related to Body mass index (BMI) 39.0-39.9, adult -Nexplanon inserted 2015 at another clinic, had longer menses with LMP-Long discussion regarding side effects of Nexplanon including bleeding irregularities,-Hemoglobin 14.1, denies any dizziness, lightheadedness or syncope-Instructed to keep menses diary x 3 months-RTC for [facility]- 1st available-addendum: as pt was leaving, stated she is starting to have ? hair loss from Nexplanon, will monitor and will obtain TSH at [facility] to r/o Thyroid as cause The patient was advised to call the office if symptoms worsen or do not improve. The patient verbalized an understanding of all instructions. The patient verbalized an understanding of the plan. Related to Breakthrough bleeding on Nexplanon Going without a resc ue inhaler can be deadly with uncontrolled asthma. Albuterol inhaler with spacer sent to [facility]. Start expectorant to help thin mucus secretions with plenty of water. Singulair to help reduce seasonal allergies. Follow up with PCP to re-engage in care. Related to Unspecified asthma, uncomplicated - Warm salt water ga rgles as needed for throat pain- Tylenol or motrin as needed for throat pain Related to ACUTE PHARYNGITIS - Take all antibioti cs as directed, even if you are feeling better Related to Acute otitis media - Take guaifenesin t wice a day for the next five days- Increase fluids- Unrelieved or worsened symptoms, fever return to clinic Related to COUGH Assessments Type Assessment Date assessment Left breast abscess Mental Status Date Cognitive Assessment Orientation - Blanding ed to time, place, person, situation. Patient Care Teams Name Effective Dates (start - stop) Status Members No Information
[2025-08-22 12:53] VITALS: BP 118/59; PULSE 89; RESP 16; TEMP 36.7; O2SAT 100; BMI 31.8
--- NOTE | 2025-08-22 12:59 | ED_ITS ---
HPI - Skin/Abscess/Foreign Bdy General Chief complaint: Skin/Abscess/Foreign Body Stated complaint: swollen legs, feet, sob Time Seen by Provider: 08/22/25 12:58 Source: patient, RN notes reviewed and old records reviewed Mode of arrival: ambulatory Limitations: no limitations History of Present Illness ED Provider: Laine Lee PA-C HPI narrative: Wanda presents with a painful rash that began on her legs approximately one week ago and has progressively worsened. She now notes similar lesions spreading to the skin fold underneath her abdomen. She reports the rash is painful but not pruritic or burning. She denies having a similar rash in the past; her only prior rash was a yeast infection in a scar 12 years ago, which she states is different from the current presentation. She is unsure of any inciting cause. Additional symptoms include generalized tiredness and a sensation of tightness/pain in her hands and arms. Review of Systems: * Constitutional: Reports feeling tired. * Skin/Integumentary: Painful, non-itchy rash on legs with spread to abdominal fold; onset one week ago, worsening. * Musculoskeletal: Reports tightness/pain in hands and arms. MD complaint: rash Related Data Home Medications ?Medication ?Instructions ?Recorded ?Confirmed budesonide-formoterol HFA 160 2 puff inhalation BID 08/26/23 mcg-4.5 mcg/actuation aerosol inhaler (Symbicort) Previous Rx's ?Medication ?Instructions ?Recorded albuterol sulfate 90 mcg/actuation 2 puff inhalation R Q4H PRN 08/30/23 aerosol inhaler SOB/wheezing 30 days #6.7 gr ams clonidine HCl 0.1 mg tablet 0.1 mg PO TID PRN anxiety 30 days 08/30/23 #30 tabs hydroxyzine HCl 25 mg tablet 25 mg PO Q6H PRN Anxiety 30 days 08/30/23 #60 tabs nicotine 21 mg/24 hr daily 21 mg transdermal DAILY 28 days 08/30/23 transdermal patch #28 ea trazodone 50 mg tablet 50 mg PO BEDTIME PRN Insomni a 30 08/30/23 days #30 tabs venlafaxine 37.5 mg 37.5 mg PO DAILY 30 days #30 caps 08/30/23 capsule,extended release 24 hr amoxicillin 875 mg-potassium 1 tab PO BID 10 days #20 tabs 09/29/24 clavulanate 125 mg tablet ammonium lactate 12 % topical cream 1 appl topical BID PRN dry skin 08/22/25 #140 grams betamethasone dipropionate 0.05 % 1 appl topical DAILY #45 grams 08/22/25 topical cream Allergies Allergy/AdvReac Type Severity Reaction Status Date / Time latex Allergy Rash Verified 08/22/25 12:58 Review of Systems Review of Systems: Yes all other systems are reviewed and are negative [facility] Past Medical History Attestation statement: The following information was validated with the patient. Source: old records reviewed and nursing notes reviewed Medical History PTSD (post-traumatic stress disorder) Asthma Surgical History S/P cholecystectomy Social History Social History Household Members: None Household Members Other:: lives alone Housing: Apartment Do you presently have visiting nurse or other home services: No Alcohol intake: current Alcohol intake frequency: 3 or more drinks per day Alcohol type: hard liquor Patient Tobacco Use Status: Current everyday Tobacco user Tobacco use type: Cigarette Cigarette Packs Per Day: 1 Cigarettes Per Day: 20.0 Years Smoked: 20 e-Cigarette/Vaping Use: Never Used Substance Use Type: Marijuana Advance Directives: No Advance Directives Information Provided: No Do you have a plan to hurt others: No Plan service: No Sexual orientation: Straight/Heterosexual Physical Exam Exam: Exam: Body: well appearing, obese habitus, moving limbs without difficulty, NVI, cap refill < 3 secs, distal pulses 2+ * Inspection of legs and abdominal skin fold: Rash present on legs and spreading to skin fold underneath abdomen. Lesions noted, including a dot in the skin fold area. No signs of pruritus or burning. Rash appears painful on palpation. * Inspection of scar: Healed scar noted, no evidence of current yeast infection. Patient confirms this area is different from current rash. Vital Signs: Vital Signs: Last Vital Signs Temp 98.1 F 08/22/25 13:17 Pulse 89 08/22/25 13:17 Resp 16 12/13/25 13:17 BP 118/59 L 12/13/25 13:17 Pulse Ox 100 08/22/25 13:17 O2 Del Method Room Air 08/22/25 13:17 BMI result Body Mass Index 31.8 Medical Decision Making Medical Decision Making MDM Narrative: Wanda presents with a painful, non-itchy rash on her legs and abdominal fold, as well as dry and tight skin of the hands. The differential diagnosis includes bacterial folliculitis or ingrown hair infection and stasis dermatitis. Cephalexin was selected to address possible bacterial infection, betamethasone cream for suspected dermatitis, and ammonium lactate lotion for symptomatic relief of dry skin. This treatment plan is based on the clinical presentation and aims to address both infectious and inflammatory etiologies. Wanda presents with a one-week history of painful rash on lower extremities extending to abdominal skin fold without pruritus. Differential includes bacterial folliculitis/ingrown hair infection and stasis dermatitis. She also reports dry, uncomfortable skin of the hands. Problem #1: Painful rash on legs and abdominal fold (possible ingrown hair infection vs stasis dermatitis) Assessment: New, painful, non-itchy rash for one week, spreading from legs to abdominal fold. No prior similar episodes. Plan: * Start cephalexin (Keflex) as empiric therapy for possible ingrown hair infection. * Apply betamethasone cream to affected areas for suspected stasis dermatitis. Problem #2: Dry/tight skin of hands Assessment: Patient notes tightness and pain in hands; dry skin suspected. Plan: * Begin ammonium lactate lotion for moisturizing and relief of dry skin of the hands. Differential Diagnosis Differential Diagnoses: The differential diagnosis associated with the presentation includes noninfectious cellulitis cellulitis venous hypertension stasis dermatitis tinea Admission/Observation Consideration of admission/observation: Escalation of care including admission/observation considered Patient would have been admitted to the hospital had herwork up had any findings where hospital admission was appropriate and her clinical presentation warranted hospital admission. Tests considered The following testing was considered but not selected: WOuld have considered labs/ imaging wells score for VTE is 0. Prescription Management I considered prescription management with: Pain Medication and Antibiotic Chronic Conditions Patient?s care impacted by: Other Social Determinants Patient?s care significantly limited by Social Determinants of Health including: Other Social Determinant of Health Discharge Plan Discharge Clinical Impression: Acute stasis dermatitis, Dry skin dermatitis Patient Disposition: Home, Self-Care Instructions: Stasis Dermatitis (DC) Additional Instructions: You were seen today for concerns of bothersome skin. You have no evidence of infectious skin disorder of your hands. Your shins are a condition called stasis dermatitis. Use the topical steroid on your legs for two weeks, followed by compression stockings.May need to repeat steroid in future. Use ammonium lactate on your hands (dry skin). Avoid frequent bath and showers. [place] use of emollients such as Eucerin or Aquaphor. Use mild soap such as Dove. Consider short course of hydrocortisone cream if not improving or worsening Prescriptions: New betamethasone dipropionate 0.05 % cream 1 appl topical DAILY Qty: 45 0RF ammonium lactate 12 % cream 1 appl topical BID PRN (Reason: dry skin) Qty: 140 0RF Rx Instructions: apply to hands No Action budesonide-formoterol [Symbicort] 160-4.5 mcg/actuation HFA aerosol inhaler 2 puff INHALATION BID albuterol sulfate 90 mcg/actuation Hfa Aerosol Inhaler 2 puff inhalation RQ4H PRN (Reason: SOB/wheezing) 30 Days Qty: 6.7 0RF nicotine 21 mg/24 hr Patch 24 Hour 21 mg transdermal DAILY 28 Days Qty: 28 0RF clonidine HCl 0.1 mg Tablet 0.1 mg PO TID PRN (Reason: anxiety) 30 Days Qty: 30 0RF Protocol: Hold for SBP< HOLD for SBP < : 90 hydroxyzine HCl 25 mg Tablet 25 mg PO Q6H PRN (Reason: Anxiety) 30 Days Qty: 60 0RF trazodone 50 mg Tablet 50 mg PO BEDTIME PRN (Reason: Insomnia) 30 Days Qty: 30 0RF venlafaxine 37.5 mg Capsule,Extended Release 24hr 37.5 mg PO DAILY 30 Days Qty: 30 0RF amoxicillin-pot clavulanate 875-125 mg tablet 1 tab PO BID 10 Days Qty: 20 0RF Referrals: [facility] [Provider Group] Clinical Impression: Acute stasis dermatitis; Dry skin dermatitis Physician,Unknown J [Primary Care Provider, Medical] Interventions: ED Discharge Assessment Last Done: 08/22/25 13:17 Discharge Date/Time: 08/22/25 13:18 Print Language: Polish
--- OUTSIDE RECORDS SUMMARY | 2025-08-22 13:11 | XMS_ITS ---
Author Name [facility] Organization Unknown History of Medication Use Medication Directions Dispensed Refills Start Date End Date Stat us No information available. No information available. completed Allergies Allergen Reaction Severity Comment Documented Date Source Statu s NO INFORMATION AVAILABLE. NO INFORMATION AVAILABLE. [facility] Care Team Organization Name Specialty Phone Email Start Date End Da trisha [place] [facility] 2024
--- OUTSIDE RECORDS SUMMARY | 2025-08-22 13:11 | XMS_ITS | Clinical Summary ---
Author Organization [facility] Address [address] [place] [address] Care Team Providers Care Payroll And Benefits Coordinator Name Role Phone Unavailable Primary Care Provider Unavailabl e Medical History Medical History Date Comments Unspecified asthma(493.90) DX:Un specified asthma(493.90) Family History Medical History Relation Name Comments Diabetes Paternal Grandfather Other cancer Paternal Grandfather Relation Name Status Comments Paternal Grandfather Social History Tobacco Use Types Packs/Day Years Used Date Smoking Tobacco: Every Day Cigarettes Alcohol Use Standard Drinks/Week Comments No 0 (1 standard drink = 0.6 oz pur e alcohol) Comments Unknown Sex and Gender Information Value Date Recorded Sex Assigned at Not on file Legal Sex Female 12:24 AM EST Gender Identity Not on file Sexual Orientation Not on file Plan of Treatment Health Maintenance Due Date Last Done Comments DTaP,Tdap,and Td Vaccines (1 - Tdap) 2008 Hepatitis B Vaccines (1 of 3 - 19+ 3-dose series) 2008 Cervical Cancer Screening: P ap Smear 2010 HPV Vaccines (1 - 3-dose SCD M series) 2016 Depression Screening 09/10/2024 COVID-19 Vaccine (1 - 2024-2 6 season) 2025 Influenza Vaccine (#1) 2025 RSV Immunization Adult Patie nts (1 - 1-dose 75+ series) 2064 HIB Vaccines Aged Out No longer eligi ble based on patient's age to complete this topic Hepatitis A Vaccines Aged Out No long er eligible based on patient's age to complete this topic IPV Vaccines Aged Out No longer eligi ble based on patient's age to complete this topic MMR Vaccines Aged Out No longer eligi ble based on patient's age to complete this topic Meningococcal ACWY Vaccine Aged Out N o longer eligible based on patient's age to complete this topic Meningococcal B Vaccine Aged Out No l onger eligible based on patient's age to complete this topic Pneumococcal Vaccine: Pediat rics (0 to 5 Years) and At-Risk Patients (6 to 49 Years) Aged Out No longer eligible b ased on patient's age to complete this topic RSV Immunization Patients Un elisabeth 20 months Aged Out No longer eligible b ased on patient's age to complete this topic Varicella Vaccines Aged Out No longer eligible based on patient's age to complete this topic
[2025-08-22 13:17] VITALS: BP 118/59; PULSE 89; RESP 16; TEMP 36.7; O2SAT 100
== END 2025-08-22 13:18 | disposition home or self-care (01) ==
PROVIDERS: Emergency Provider Emergency Medicine
DX: I87.2 Venous insufficiency (chronic) (peripheral) (principal); L85.3 Xerosis cutis; R60.0 Localized edema; R06.02 Shortness of breath
CPT/HCPCS: 99282; 99283